=== PATIENT | male | born 1940 | race Caucasian/White ===

== ENCOUNTER 2020-03-13 20:32 | Inpatient (IN) | payer MEDICARE, BC ==
[~2020-03-13] VITALS: Ht 175.3 cm; Wt 95.1 kg
--- NOTE | 2020-03-13 20:40 | NUR ---
ED Nurse Note: Patient came from home to the ED due to possible ureteral stone obstruction. Patient stated he had some left-sided abdominal pain before coming in but now it is minimal. Patient said he went to his urologist who saw some hydronephrosis and was concerned of a large stone. Patient stated he had hx of ureteral stones passed. Patient denies fever and chills, nausea or vomiting, He denies any dysuria or hematuria, /SOB and chest pain.
[2020-03-13] MEDS ORDERED: METOPROLOL TART25 MG ORAL (20:44)
--- NOTE | 2020-03-13 20:49 | NUR ---
ED Nurse Note: Urine sent to lab
--- NOTE | 2020-03-13 20:50 | NUR ---
ED Nurse Note: Patient to CT scan
[2020-03-13 20:56] VITALS: BP 151/95
--- NOTE | 2020-03-13 21:00 | NUR ---
ED Nurse Note: Patient back from CT
--- NOTE | 2020-03-13 21:00 | NUR ---
ED Nurse Note: ERMD at bedside
[2020-03-13 21:05] LABS: APPEARANCE,URINE CLEAR; BILIRUBIN, URINE NEGATIVE (NEGATIVE); GLUCOSE, URINE (UA) NEGATIVE (NEGATIVE); KETONES,URINE NEGATIVE (NEGATIVE); LEUKOCYTE ESTERASE ,URINE 1+ (NEGATIVE); NITRITE,URINE NEGATIVE (NEGATIVE); PH,URINE 5 (4.5-8.0); PROTEIN,URINE 2+ (NEGATIVE); UROBILINOGEN,URINE NORMAL MG/DL (0.0-1.0)
[2020-03-13 21:07] LABS: COLOR,URINE YELLOW
--- NOTE | 2020-03-13 21:15 | NUR ---
ED Nurse Note: Blood and rapid covid test sent to lab
--- NOTE | 2020-03-13 21:25 | Emergency Room Report ---
History of Present Illness General Chief Complaint: Male Urogenital Problems Source: Patient Present Illness HPI Patient is a 79-year-old male past medical history of atrial fibrillation status post watchman procedure and kidney stones who was sent to the emergency room by his urologist Dr. Sullivan is concerned of an obstructing ureteral stone. Patient had some left-sided abdominal pain. He states that he went to his urologist office who saw some hydronephrosis and was concerned of a large stone. Patient states that his pain is minimal. He denies any fever or chills. He denies any abdominal pain, nausea or vomiting. He denies any dysuria or hematuria. Patient states that he has a history of 3 intrarenal stones and one ureteral stone that he believes he has passed. Allergies: Coded Allergies: No Known Allergies (Unverified , 03/13/20) COVID-19 Screening Contact w/high risk pt: No Experienced COVID-19 symptoms?: No COVID-19 Testing performed DIRECTOR DRUG: Yes - 11/25 COVID-19 Screening: Negative COVID-19 COVID-19 Testing Source: [facility] Patient History Reviewed Nursing Documentation: PMH: Agreed; PSxH: Agreed Nursing Documentation-PMH Past Medical History: No History, Except For Hx Cardiac Problems: Yes - afib Review of Systems All Other Systems: negative except mentioned in HPI Physical Exam Vital Signs Date Time Temp Pulse Resp B/P (MAP) Pulse Ox O2 Delivery O2 Flow Rate FiO2 03/13/20 20:37 97.7 62 18 151/95 (113) 94 Room Air Sp02 EP Interpretation: reviewed, normal General Appearance: no apparent distress, alert, GCS 15, non-toxic Head: normocephalic, atraumatic Eyes: bilateral eye normal inspection, bilateral eye PERRL ENT: hearing grossly normal, normal pharynx, no angioedema, normal voice Neck: full range of motion, supple/symm/no masses Respiratory: chest non-tender, speaking full sentences Cardiovascular #1: no edema, irregularly irregular Gastrointestinal: non tender, soft, no guarding, no rebound Rectal: deferred Genitourinary: no CVA tenderness Musculoskeletal: normal range of motion, no calf tenderness, no lower extremity edema Neurologic: welfare manager III-XII nml as tested, oriented x3 Psychiatric: no suicidal/homicidal ideation Skin: no rash Lymphatic: no adenopathy Procedures Critical Care Time Critical Care Time Total critical care time: Approximately 35 minutes. Due to a high probability of clinically significant, life threatening deterioration, the patient required my highest level of preparedness to intervene emergently and I personally spent this critical care time directly and personally managing the patient. This critical care time included obtaining a history; examining the patient; pulse oximetry; ordering and review of studies; arranging urgent treatment with development of a management plan; evaluation of patient's response to treatment; frequent reassessment; and, discussions with other providers.This critical care time was performed to assess and manage the high probability of imminent, life- threatening deterioration that could result in multi-organ failure. It was exclusive of separately billable procedures and treating other patients and teaching time. Please see MDM section and the rest of the note for further information on patient assessment and treatment. Medical Decision Making Diagnostic Impression: Primary Impression: Ureteral stone Additional Impressions: Hydronephrosis Acute renal failure Elevated troponin ER Course Patient found to have large 9 mm distal ureteral stone with moderate hydronephrosis. Patient does have leukocytosis. White count of 14,000. Patient given empiric antibiotics. Blood and urine cultures have been sent. Patient given 750 mg of IV Levaquin. Patient has elevated BUN and creatinine with creatinine of 2. 2 L of IV fluids have been given and 100 cc/h of IV fluids are being given as maintenance. Patient will be n.p.o. after midnight. Patient resting comfortably in bed and still declining any pain medication at this time. Patient's troponin is mildly elevated. EKG demonstrates atrial fibrillation with no ST changes. Patient has no chest pain. Will hold on blood thinners due to the fact that the patient will require surgery. Patient will be seen by Dr Jordan from cardiology in the morning. Serial troponins have been ordered. Patient will be admitted to [facility].. Laboratory Tests Test 03/13/20 21:00 03/13/20 21:15 Urine Color Yellow Urine Appearance Clear Urine pH 5 (4.5-8.0) Urine Specific [place] 1.020 (1.005-1.035) Urine Protein 2+ (NEGATIVE) H Urine Glucose (UA) Negative (NEGATIVE) Urine Ketones Negative (NEGATIVE) Urine Blood 2+ (NEGATIVE) H Urine Nitrite Negative (NEGATIVE) Urine Bilirubin Negative (NEGATIVE) Urine Urobilinogen Normal MG/DL (0.0-1.0) Urine Leukocyte Esterase 1+ (NEGATIVE) H Urine RBC 2-4 /HPF (0 - 0) H Urine WBC 0-2 /HPF (0 - 0) Urine Squamous Epithelial Cells Occasional /LPF Urine Bacteria Occasional /HPF (NONE) Urine Mucus Occasional /LPF White Blood Count 14.4 K/UL (4.8-10.8) H Red Blood Count 5.40 M/UL (4.70-6.10) Hemoglobin 17.2 G/DL (14.2-18.0) Hematocrit 50.8 % (42.0-52.0) Mean Corpuscular Volume 94 FL (80-99) Mean Corpuscular Hemoglobin 31.8 PG (27.0-31.0) H Mean Corpuscular Hemoglobin Concent 33.8 G/DL (32.0-36.0) Red Cell Distribution Width 12.9 % (11.6-14.8) Platelet Count 187 K/UL (150-450) Mean Platelet Volume 8.2 FL (6.5-10.1) Neutrophils (%) (Auto) 73.4 % (45.0-75.0) Lymphocytes (%) (Auto) 11.7 % (20.0-45.0) L Monocytes (%) (Auto) 13.2 % (1.0-10.0) H Eosinophils (%) (Auto) 0.7 % (0.0-3.0) Basophils (%) (Auto) 1.1 % (0.0-2.0) Prothrombin Time 11.4 SEC (9.30-11.50) Prothrombin Time INR 1.0 (0.9-1.1) Activated Partial Thromboplast Time 27 SEC (23-33) Sodium Level 141 MMOL/L (136-145) Potassium Level 3.9 MMOL/L (3.5-5.1) Chloride Level 104 MMOL/L (98-107) Carbon Dioxide Level 28 MMOL/L (21-32) Anion Gap 9 mmol/L (5-15) Blood Urea Nitrogen 25 mg/dL (7-18) H Creatinine 2.0 MG/DL (0.55-1.30) H Estimated Glomerular Filtration Rate 32.5 mL/min (>60) Glucose Level 101 MG/DL (74-106) Calcium Level 8.9 MG/DL (8.5-10.1) Total Bilirubin 1.7 MG/DL (0.2-1.0) H Direct Bilirubin 0.3 MG/DL (0.0-0.3) Aspartate Amino Transferase (AST) 26 U/L (15-37) Alanine Aminotransferase (ALT) 34 U/L (12-78) Alkaline Phosphatase 59 U/L (46-116) Total Creatine Kinase 142 U/L (26-308) Troponin I 0.093 ng/mL (0.000-0.056) Total Protein 7.6 G/DL (6.4-8.2) Albumin 3.8 G/DL (3.4-5.0) Globulin 3.8 g/dL Albumin/Globulin Ratio 1.0 (1.0-2.7) Microbiology Date/Time Source Procedure Growth Status 03/13/20 21:15 Nasopharynx SARS-CoV-2 RdRp Gene Assay - Final Complete Laboratory Tests Test 03/13/20 21:00 03/13/20 21:15 Urine Color Yellow Urine Appearance Clear Urine pH 5 (4.5-8.0) Urine Specific [place] 1.020 (1.005-1.035) Urine Protein 2+ (NEGATIVE) H Urine Glucose (UA) Negative (NEGATIVE) Urine Ketones Negative (NEGATIVE) Urine Blood 2+ (NEGATIVE) H Urine Nitrite Negative (NEGATIVE) Urine Bilirubin Negative (NEGATIVE) Urine Urobilinogen Normal MG/DL (0.0-1.0) Urine Leukocyte Esterase 1+ (NEGATIVE) H Urine RBC 2-4 /HPF (0 - 0) H Urine WBC 0-2 /HPF (0 - 0) Urine Squamous Epithelial Cells Occasional /LPF Urine Bacteria Occasional /HPF (NONE) Urine Mucus Occasional /LPF White Blood Count 14.4 K/UL (4.8-10.8) H Red Blood Count 5.40 M/UL (4.70-6.10) Hemoglobin 17.2 G/DL (14.2-18.0) Hematocrit 50.8 % (42.0-52.0) Mean Corpuscular Volume 94 FL (80-99) Mean Corpuscular Hemoglobin 31.8 PG (27.0-31.0) H Mean Corpuscular Hemoglobin Concent 33.8 G/DL (32.0-36.0) Red Cell Distribution Width 12.9 % (11.6-14.8) Platelet Count 187 K/UL (150-450) Mean Platelet Volume 8.2 FL (6.5-10.1) Neutrophils (%) (Auto) 73.4 % (45.0-75.0) Lymphocytes (%) (Auto) 11.7 % (20.0-45.0) L Monocytes (%) (Auto) 13.2 % (1.0-10.0) H Eosinophils (%) (Auto) 0.7 % (0.0-3.0) Basophils (%) (Auto) 1.1 % (0.0-2.0) Prothrombin Time 11.4 SEC (9.30-11.50) Prothrombin Time INR 1.0 (0.9-1.1) Activated Partial Thromboplast Time 27 SEC (23-33) Sodium Level 141 MMOL/L (136-145) Potassium Level 3.9 MMOL/L (3.5-5.1) Chloride Level 104 MMOL/L (98-107) Carbon Dioxide Level 28 MMOL/L (21-32) Anion Gap 9 mmol/L (5-15) Blood Urea Nitrogen 25 mg/dL (7-18) H Creatinine 2.0 MG/DL (0.55-1.30) H Estimated Glomerular Filtration Rate 32.5 mL/min (>60) Glucose Level 101 MG/DL (74-106) Calcium Level 8.9 MG/DL (8.5-10.1) Total Bilirubin Pending Aspartate Amino Transferase (AST) Pending Alanine Aminotransferase (ALT) Pending Alkaline Phosphatase Pending Total Creatine Kinase Pending Troponin I Pending Total Protein Pending Albumin Pending Globulin Pending EKG Diagnostic Results Troponin ordered: Yes When was troponin ordered?: Mar 13, 2020 EKG Time: 21:58 Rate: normal Rhythm: other - Atrial fibrillation ST Segments: no acute changes ASA given to the pt in ED: No - Left axis deviation Last Vital Signs Date Time Temp Pulse Resp B/P (MAP) Pulse Ox O2 Delivery O2 Flow Rate FiO2 03/13/20 20:56 97.7 78 18 151/95 94 Room Air Disposition: ADMITTED INPATIENT - [facility] Condition: Critical Physician Consult: Dr. Iyer and Dr. Sullivan Referrals: Rainer Sullivan MD (PCP) Additional Instructions: Please note that this report is being documented using DRAGON technology. This can lead to erroneous entry secondary to incorrect interpretation by the dictating instrument. Clara Holman M.D. Mar 13, 2020 21:25
--- NOTE | 2020-03-13 21:36 | Diagnostic Imaging Report ---
CLINICAL HISTORY: PAIN TECHNIQUE: Axial computed tomography images of the abdomen and pelvis without intravenous contrast. CTDI is 9.2 mGy and DLP is 490.2 mGy-cm. One or more of the following dose reduction techniques were used: automated exposure control, adjustment of the mA and/or kV according to patient size, use of iterative reconstruction technique. COMPARISON: No relevant prior studies available. FINDINGS: Evaluation of the soft tissue and vasculature is limited on this noncontrast exam. The lung bases demonstrate no consolidation or pleural effusions. 12 mm hepatic dome cyst (coronal 40). Additional subcentimeter hypoattenuating liver lesions are identified, too small to characterize. The spleen, pancreas and adrenal gland are unremarkable, within the confines of this noncontrast exam. No gallbladder wall thickening or pericholecystic free fluid. A 9 mm stone is identified within the distal right ureter (3: 117, coe images). There is more proximal moderate hydroureteronephrosis with periureteral inflammatory changes consistent with obstructive urolithiasis. Additional nonobstructive bilateral renal calculi are identified, the largest measuring 13 mm within the left kidney. No left hydronephrosis. 36 mm partially exophytic left lower pole renal cyst. The appendix is unremarkable. The bowel demonstrate normal caliber without evidence of obstruction. No mural bowel wall thickening. The prostate gland is enlarged measuring 18 mm in the transverse dimension. The urinary bladder is decompressed limiting evaluation of the lumen. Aorta is normal caliber. Atherosclerotic vascular calcifications are identified. No adenopathy or extraluminal air. No organized fluid collection or ascites. Penile pump reservoir identified within the right lower quadrant. Multilevel degenerative changes are identified within the thoracic and lumbar spine including vacuum disc phenomenon. Small fat containing periumbilical hernia. IMPRESSION: 1. Obstructing 9 mm stone within the distal right ureter, with more proximal moderate hydroureteronephrosis. Additional bilateral calculi are identified, nonobstructive. 2. Incidental note is made of an enlarged prostate gland.
[2020-03-13 21:44] LABS: ANION GAP 9 mmol/L (5-15); BASOPHILS % (AUTO) 1.1 % (0.0-2.0); BLOOD UREA NITROGEN 25 mg/dL (7-18); CALCIUM 8.9 MG/DL (8.5-10.1); CARBON DIOXIDE 28 MMOL/L (21-32); CHLORIDE 104 MMOL/L (98-107); EOSINOPHILS % (AUTO) 0.7 % (0.0-3.0); HEMATOCRIT 50.8 % (42.0-52.0); HEMOGLOBIN 17.2 G/DL (14.2-18.0); LYMPHOCYTES % (AUTO) 11.7 % (20.0-45.0); MEAN CORPUSCULAR VOLUME 94 FL (80-99); MONOCYTES % (AUTO) 13.2 % (1.0-10.0); NEUTROPHILS % (AUTO) 73.4 % (45.0-75.0); PLATELET COUNT 187 K/UL (150-450); POTASSIUM 3.9 MMOL/L (3.5-5.1); RED CELL DISTRIBUTION WIDTH 12.9 % (11.6-14.8); SODIUM 141 MMOL/L (136-145); WHITE BLOOD COUNT 14.4 K/UL (4.8-10.8)
[2020-03-13 21:55] LABS: ALANINE AMINOTRANSFERASE 34 U/L (12-78); ALBUMIN 3.8 G/DL (3.4-5.0); ALKALINE PHOSPHATASE 59 U/L (46-116); ASPARTATE AMINO TRANSFERASE 26 U/L (15-37); BILIRUBIN,TOTAL 1.7 MG/DL (0.2-1.0); CREATINE KINASE 142 U/L (26-308)
[2020-03-13 21:57] LABS: BILIRUBIN,DIRECT 0.3 MG/DL (0.0-0.3)
--- NOTE | 2020-03-13 23:10 | NUR ---
ED Nurse Note: Report given to PRINCESS ESPINOZA.
--- NOTE | 2020-03-13 23:25 | NUR ---
TRANSFER TO FLOOR: Patient transferred to SDU at rm 245 via gurney, with gambling monitor, accompanied by RN. Belongings given and checked by RN. Patient transferred safely to bed and endorsed to RN
--- NOTE | 2020-03-13 23:50 | NUR ---
NURSE NOTES: Received report from OLGA Garcias. pt is alert oriented x 4. pt is verbal and able follow commands. Able to walk with assistance with stable gait. Pt refuses to wear non skid socks. Oriented to hospital and protocols. Pt belongings signed by pt. Noted several things in bedside including black phone with field mechanical meter tester. Pt has money and wants to keep it at bedside. pt also has few medications at bag but pt refuses to give it. Explained protocol and pt aware of that. Pt has LAC g20 patent intact and connected to IV. Pt denies pain and chest pain. No signs of respiratory distress on RA o2 sat 100%. BP: 145/74. No pain at this time at abdomen. Pt able to urinate without pain. Bed in lowest position. Call light within reach. Continue to plan of care.
--- NOTE | 2020-03-13 23:55 | NUR ---
NURSE NOTES: Spoke to Dr. Iyer orders were given. Pt is on NPO post midnight, explained to pt aware and able to verbalized understanding. Pt able to follow commands and said will call if need assistance.
[2020-03-14] VITALS (12 sets, daily range): BP systolic 111–163; BP diastolic 67–101
--- NOTE | 2020-03-14 03:43 | NUR ---
NURSE NOTES: O2 sat noted 94% on RA. No signs of respiratory distress. RR: 19. Pt is sleeping comfortably.
--- NOTE | 2020-03-14 03:59 | NUR ---
NURSE NOTES: Home meds at bedside, pt refused to surrender it. Student Nurse made aware.
--- NOTE | 2020-03-14 04:51 | NUR ---
NURSE NOTES: Pt complained of pain 10/10 on lower abdomen. Spoke to ordered 1 dose of Dilaudid 2mg IV x 1. pt BP:152/64, KS: 107 o2 sat- 95% in RA. Pt is guarding and facial grimacing is noted.
--- NOTE | 2020-03-14 05:38 | NUR ---
NURSE NOTES: EKG done. Pt rhythym is AFIB with RVR, pt is asymptomatic, verbal and able to follow commands. No chest pain. HR- 111-115, BP:147/74. o2 sat- 97% RA. pt is in excuriating pain on lower abdomen. Continue to monitor pt.
--- NOTE | 2020-03-14 06:37 | NUR ---
NURSE NOTES: Pt has no pain noted. Pt is asymptomatic, No chest pain noted. Pt repositioned himself.
--- NOTE | 2020-03-14 06:53 | NUR ---
NURSE NOTES: Page Dr. Carter awaiting for response. Regarding the Atrial flutter x 1 and Afib with RVR. HR-120's. Awaiting for response.
--- NOTE | 2020-03-14 07:08 | NUR ---
NURSE HAND-OFF REPORT: Important Events on Shift: Pt has pain 10/10 on abdominal pain guarding in lower abdominal pain, Rhythym is AFIB with RVR, Trop I -0.093 Patient Status: Asymptomatic Diet: NPO post MN Pending Orders: None Pending Results/Labs: Trop I Pending MD notification: Change in Rhythym Latest Vital Signs: Temperature 97.7 , Pulse 101 , B/P 152 /90 , Respiratory Rate 20 , O2 SAT 96 , Room Air, O2 Flow Rate . Vital Sign Comment: Hr is 120's EKG Rhythm: AFIB/Atrial flutter Rhythm change?: Y Notified?: N - MD Response: No ressponse yet Latest Mata Fall Score: 20 Fall Risk: Low Risk Safety Measures: Call light Within Reach, Bed Alarm Zone 2, Side Rails Side Rails x3, Bed position Low and Locked. Fall Precautions: Yellow Socks Patient Fall Education Report given to [OLGA Kitchen].
[2020-03-14 07:16] LABS: ALBUMIN 3.5 G/DL (3.4-5.0); ALBUMIN/GLOBULIN RATIO 1.1 (1.0-2.7); BILIRUBIN,TOTAL 1.8 MG/DL (0.2-1.0); CALCIUM 8.1 MG/DL (8.5-10.1); CKMB 4.4 NG/ML (0.0-3.6); CREATININE 1.8 MG/DL (0.55-1.30); POTASSIUM 4.3 MMOL/L (3.5-5.1)
[2020-03-14 07:17] LABS: BILIRUBIN,DIRECT 0.4 MG/DL (0.0-0.3)
--- NOTE | 2020-03-14 07:40 | NUR ---
NURSE NOTES: Received report from OLGA Cortes. Patient in bed resting, no active s/s cardiac, respiratory distress noticed at this time. Patient A. fib with HR 101. Patient AOx4, follow command, ambulatory with minimal pediatric dental assistant. IV on left AC 20G, asymptomatic, patent, intact, IVF NS running @ 75ml/h. . Endorsed possible surgery by Dr. Sullivan, NPO at this time. Patient refused to check on medication or put it in the pharmacy, will educate again. Endorsed MD made aware of EKG result, no new order at this time. Bed in lowest position, side rails upx3, call light within reach, bed alarm on, Will continue to monitor.
--- NOTE | 2020-03-14 07:41 | NUR ---
NURSE NOTES: Patient AOx4, denies chest pain or abdominal pain at this time. Will continue to monitor.
--- NOTE | 2020-03-14 07:58 | Pre-Procedure Note/Attestation ---
Pre-Procedure Note/Attestation Complete Prior to Procedure Planned Procedure: right Procedure Narrative: RIRS ESWL Right Indications for Procedure Pre-Operative Diagnosis: Renal and right ureteral stone Attestation I attest that I discussed the nature of the procedure; its benefits; risks and complications; and alternatives (and the risks and benefits of such alternatives), prior to the procedure, with the patient (or the patient's legal personnel representative). I attest that, if there was a reasonable possibility of needing a blood transfusion, the patient (or the patient's legal personnel representative) was given the [facility] standardized written summary, pursuant to the Trace Lb Blood Safety Act ([place] Health and Safety Code # 1645, as amended). I attest that I re-evaluated the patient just prior to the surgery and that there has been no change in the patient's H&P, except as documented below: Rainer Sullivan MD Mar 14, 2020 07:58
--- NOTE | 2020-03-14 09:36 | NUR ---
NURSE NOTES: Per Dr. Iyer, 5mg IVP metoprolol once. Order noted, entered, carried out.
[2020-03-14] MEDS ORDERED: Metoprolol Tartrate 5mg/5ml Inj IVP SCH ×2 (10:00→10:31)
--- NOTE | 2020-03-14 10:25 | NUR ---
NURSE NOTES: Dr. Carter at the bedside, made aware metoprolol 5mg IVP given per Dr. Iyer. Per MD boggs to go surgery at this time, will speak with Dr. Sullivan regarding giving metoprolol at the OR.
[2020-03-14] MEDS ORDERED: Iothalamate Meglumine 60% 50ML INJ ONE (10:26)
[2020-03-14] MEDS ORDERED: Metoprolol Tartrate 5 MG in D5W 55 ML IVPB PRN (11:00)
[2020-03-14] MEDS ORDERED: Midazolam 2mg/2ml Inj ONE (11:05)
[2020-03-14] MEDS ORDERED: fentaNYL 100 mcg/2 mL IV ONE ×2 (11:05→12:04)
--- NOTE | 2020-03-14 11:15 | History and Physical Report ---
DATE OF ADMISSION: 03/13/2020 HISTORY OF PRESENT ILLNESS: This is a 79-year-old male with a history of chronic atrial fibrillation, status post a failed WATCHMAN procedure two years ago, was sent to the hospital with flank pain. The patient was found to have significant urolithiasis and renal obstruction with high creatinine. As part of his workup, he underwent an EKG, which showed that he was in AFib. Heart rate at that time yesterday upon arrival was 115, later on he was found to be also in the 130s range. The patient states he is always in AFib, although he does not know his rate. He takes metoprolol only, unknown dose. He is not on anticoagulation. The patient has been worked up and found to have urolithiasis and renal obstruction and is scheduled for cystoscopy and stent placement/stone extraction after cardiac clearance. He is currently asymptomatic. Denies any chest pain or shortness of breath. PAST HISTORY: Chronic AFib, status post WATCHMAN procedure, chronic beta blockade. HOME MEDICATIONS: Metoprolol only. ALLERGIES: None. SURGICAL HISTORY: Notable for WATCHMAN procedure. PHYSICAL EXAMINATION: GENERAL: Reveals a 79-year-old male. HEENT: Unremarkable. LUNGS: Clear breath sounds bilaterally. HEART: Heart rate is irregularly irregular. ABDOMEN: Soft. EXTREMITIES: There is no edema. VITAL SIGNS: Respirations are 18, heart rate is 126, blood pressure 130/70, he is afebrile. LABORATORY AND DIAGNOSTIC DATA: Lab testing shows creatinine 2, now 1.8. Bilirubin 1.7. Troponin 0.09, followed by 0.097. ProBNP 748. CBC shows white count 14,000. Coags are negative. Urinalysis shows few pus cells. SARS COVID-19 gene assay is negative. Abdomen and pelvis CT obtained yesterday shows a 9 mm stone in the distal right ureter as well as proximal moderate hydronephrosis. Additional nonobstructive bilateral renal calculi also noted. Lung basis on CT abdomen images are clear of any infiltrates or effusion. IMPRESSION: 1. Urolithiasis. 2. Troponin leak. 3. Chronic atrial fibrillation. 4. Status post WATCHMAN procedure. 5. Chronic beta blockade. DISCUSSION: The patient needs better rate control. We will initiate IV metoprolol. Once heart rate is controlled to less than 100, he will be cleared for surgery from an Internal Medicine/Pulmonary/ICU perspective. Also await cardiac evaluation and opinion. Discussed with the patient and Dr. Sullivan. I will start IV beta blockade. Keep NPO, IV fluids. The patient has received Levaquin in the ER and here as well today. Osiel Iyer M.D. DR: KIMBERLEE JOB#: [id number] CC:
[2020-03-14] MEDS ORDERED: Phenylephrine 10mg/ml Vial ONE (11:30)
[2020-03-14] MEDS ORDERED: NS Irrig 2000ml IRRIG ONE (11:30)
[2020-03-14] MEDS ORDERED: Esmolol 100mg/10ml Inj ONE (11:30)
[2020-03-14] MEDS ORDERED: LR 1000ml ONE (11:30)
--- NOTE | 2020-03-14 12:00 | Consultation ---
DATE OF CONSULTATION: 03/14/2020 CARDIOLOGY CONSULTATION CONSULTING PHYSICIAN: Varun Carter MD. REQUESTING PHYSICIAN: Rainer Sullivan MD. REASON FOR CONSULTATION: Preoperative cardiovascular assessment. HISTORY OF PRESENT ILLNESS: This is a 79-year-old male who has a history of chronic atrial fibrillation. He is status post Watchman procedure approximately two years ago. He also states that he had a stress test in the last year during his routine physical and did not have any abnormalities. The patient was sent to the emergency room last night because of abdominal pain and a known obstructive ureteral stone with associated hydronephrosis. In the emergency room, he was noted to have an elevated troponin level but no symptoms of chest pain, palpitations, or shortness of breath. PAST MEDICAL HISTORY: As noted above. ALLERGIES: None. MEDICATIONS: Include Toprol 25 daily. FAMILY HISTORY: Noncontributory. SOCIAL HISTORY: Prior smoker. No alcohol or substance abuse. REVIEW OF SYSTEMS: Otherwise unremarkable. PHYSICAL EXAMINATION: VITAL SIGNS: Blood pressure 150/95, pulse 121, respiratory rate 18, afebrile. HEENT: Conjunctivae pink. Oropharynx clear. NECK: Supple. LUNGS: Clear. CARDIAC: Irregularly irregular. Normal S1, S2. ABDOMEN: Soft. No CVA tenderness. EXTREMITIES: No edema. NEUROLOGIC: Nonfocal. LABORATORY AND DIAGNOSTIC DATA: Troponin 0.093, repeated 0.097. CK-MB index was negative. EKG atrial fibrillation, nonspecific ST change. Potassium 4.3, BUN 20, creatinine 1.8. IMPRESSION: 1. Chronic atrial fibrillation now with rapid ventricular response. 2. Elevated troponin levels likely demand leak and do not represent acute ischemia. 3. Chronic diastolic congestive heart failure, clinically compensated. 4. Obstructive uropathy. PLAN: 1. Discussed with the patient. 2. Discussed with urologist. 3. IV beta-giuliana for rate control. 4. IV morphine for pain control. 5. No anticoagulation needed in view of history of Watchman procedure. 6. Minimal increase in perioperative cardiovascular risk discussed with the patient; however, I recommend to proceed in view of acuity of symptoms. The patient to be seen postoperatively and care plan updated. Varun Carter M.D. DR: Neno JOB#: [id number] CC:
--- NOTE | 2020-03-14 12:02 | NUR ---
CASE MANAGEMENT: REVIEW 79 YEAR OLD MALE PRESENTED TO ED FROM HOME CC: LEFT SIDE ABD PAIN SI: URETERAL STONE . HYDRONEPHROSIS . ACUTE RENAL FAILURE . ELEVATED TROPONIN RIRS ESWL RIGHT 03/14 T 97.7 HR 62 RR 18 BP 151/95 SAT 94% ROOM AIR WBC 14.4 BUN 25 CR 2.0 TROP I 0.093 IS: NS IVF BOLUS X1 LEVOFLOXACIN IV X1 DILAUDID IV X1 LOPRESSOR IV X1 PATIENT ADMITTED TO STEP DOWN UNIT 03/13/2020 DCP: PATIENT IS FROM HOME
[2020-03-14] MEDS ORDERED: NS Irrig 1000ml IRRIG ONE (12:30)
[2020-03-14] MEDS ORDERED: fentaNYL 100 mcg/2 mL IV PRN (12:30)
[2020-03-14] MEDS ORDERED: Acetaminophen (Non formulary) 100 ML IV ONE (12:30)
[2020-03-14] MEDS ORDERED: DiphenhydrAMINE 50mg/ml Inj IVP PRN (12:30)
[2020-03-14] MEDS ORDERED: Hydromorphone 0.5mg/0.5ml inj IVP PRN ×2 (12:30)
[2020-03-14] MEDS ORDERED: Lidocaine 1% MPF 10mg/ml 5ml ONE (12:32)
[2020-03-14] MEDS ORDERED: Metoclopramide 10mg/2ml Inj ONE (12:32)
[2020-03-14] MEDS ORDERED: Metoprolol Tartrate 5mg/5ml Inj ONE (12:38)
--- NOTE | 2020-03-14 12:41 | Anethesia Preoperative Eval ---
Anesthesia Pre-op PMH/ROS General Date of Evaluation: Mar 14, 2020 Time of Evaluation: 11:20 Anesthesiologist: osmin ASA Score: ASA 3 Mallampati Score Class I : Soft palate, uvula, fauces, pillars visible Class II: Soft palate, uvula, fauces visible Class III: Soft palate, base of uvula visible Class IV: Only hard plate visible Mallampati Classification: Class III Surgeon: Nate Diagnosis: Kidney stone Surgical Procedure: ESWL Anesthesia History: none Family History: no anesthesia problems Allergies: Coded Allergies: No Known Allergies (Unverified , 03/13/20) Medications: see eMAR Patient NPO?: Yes NPO Date: Mar 14, 2020 NPO Time: 00:01 Past Medical History Cardiovascular: Reports: HTN, CAD, arrhythmia - afib, uncntrlled rAte; Denies: IA, valve dz, other Pulmonary: Denies: asthma, COPD, JULISA, other Gastrointestinal/Genitourinary: Denies: GERD, CRI, ESRD, other Neurologic/Psychiatric: Denies: dementia, CVA, depression/anxiety, TIA, other Endocrine: Denies: DM, hypothyroidism, steroids, other HEENT: Denies: cataract (L), cataract (R), glaucoma, SAXMAN (L), SAXMAN (R), other Hematology/Immune: Denies: anemia, DVT, bleeding disorder, other Musculoskeletal/Integumentary: Denies: OA, RA, DJD, DDD, edema, other PMH Narrative: 1. Chronic atrial fibrillation now with rapid ventricular response. 2. Elevated troponin levels likely demand leak and do not represent acute ischemia. 3. Chronic diastolic congestive heart failure, clinically compensated. 4. Obstructive uropathy. Anesthesia Pre-op Phys. Exam Physician Exam Last Vital Signs Date Time Temp Pulse Resp B/P (MAP) Pulse Ox O2 Delivery O2 Flow Rate FiO2 03/14/20 09:30 125 142/91 03/14/20 08:00 97.7 20 96 03/14/20 08:00 Room Air Constitutional: NAD Neurologic: CN 2-12 intact Cardiovascular: other - afib Respiratory: CTA Gastrointestinal: S/NT/ND Airway Exam Mallampati Classification 3 Mallampati Score: Class III MO: limited Neck: thick TMD: 2fb ROM: full Dentures: no upper, no lower Anesthesia Pre-op A/P Labs Hematology Test 03/13/20 21:15 White Blood Count 14.4 K/UL (4.8-10.8) H Red Blood Count 5.40 M/UL (4.70-6.10) Hemoglobin 17.2 G/DL (14.2-18.0) Hematocrit 50.8 % (42.0-52.0) Mean Corpuscular Volume 94 FL (80-99) Mean Corpuscular Hemoglobin 31.8 PG (27.0-31.0) H Mean Corpuscular Hemoglobin Concent 33.8 G/DL (32.0-36.0) Red Cell Distribution Width 12.9 % (11.6-14.8) Platelet Count 187 K/UL (150-450) Mean Platelet Volume 8.2 FL (6.5-10.1) Neutrophils (%) (Auto) 73.4 % (45.0-75.0) Lymphocytes (%) (Auto) 11.7 % (20.0-45.0) L Monocytes (%) (Auto) 13.2 % (1.0-10.0) H Eosinophils (%) (Auto) 0.7 % (0.0-3.0) Basophils (%) (Auto) 1.1 % (0.0-2.0) Coagulation Test 03/13/20 21:15 Prothrombin Time 11.4 SEC (9.30-11.50) Prothromb Time International Ratio 1.0 (0.9-1.1) Activated Partial Thromboplast Time 27 SEC (23-33) Chemistry Test 03/13/20 21:15 03/14/20 06:02 Sodium Level 141 MMOL/L (136-145) 140 MMOL/L (136-145) Potassium Level 3.9 MMOL/L (3.5-5.1) 4.3 MMOL/L (3.5-5.1) Chloride Level 104 MMOL/L (98-107) 106 MMOL/L (98-107) Carbon Dioxide Level 28 MMOL/L (21-32) 22 MMOL/L (21-32) Anion Gap 9 mmol/L (5-15) 12 mmol/L (5-15) Blood Urea Nitrogen 25 mg/dL (7-18) H 20 mg/dL (7-18) H Creatinine 2.0 MG/DL (0.55-1.30) H 1.8 MG/DL (0.55-1.30) H Estimat Glomerular Filtration Rate 32.5 mL/min (>60) 36.7 mL/min (>60) Glucose Level 101 MG/DL (74-106) 132 MG/DL (74-106) H Calcium Level 8.9 MG/DL (8.5-10.1) 8.1 MG/DL (8.5-10.1) L Total Bilirubin 1.7 MG/DL (0.2-1.0) H 1.8 MG/DL (0.2-1.0) H Direct Bilirubin 0.3 MG/DL (0.0-0.3) 0.4 MG/DL (0.0-0.3) H Aspartate Amino Transf (AST/SGOT) 26 U/L (15-37) 23 U/L (15-37) Alanine Aminotransferase (ALT/SGPT) 34 U/L (12-78) 31 U/L (12-78) Alkaline Phosphatase 59 U/L (46-116) 57 U/L (46-116) Total Creatine Kinase 142 U/L (26-308) 102 U/L (26-308) Troponin I 0.093 ng/mL (0.000-0.056) 0.097 ng/mL (0.000-0.056) Total Protein 7.6 G/DL (6.4-8.2) 6.7 G/DL (6.4-8.2) Albumin 3.8 G/DL (3.4-5.0) 3.5 G/DL (3.4-5.0) Globulin 3.8 g/dL 3.2 g/dL Albumin/Globulin Ratio 1.0 (1.0-2.7) 1.1 (1.0-2.7) Creatine Kinase MB 4.4 NG/ML (0.0-3.6) H Creatine Kinase MB Relative Index 4.3 Pro-B-Type Natriuretic Peptide 748 pg/mL (0-125) H Thyroid Stimulating Hormone (TSH) 2.079 uiU/mL (0.358-3.740) Studies Pre-op Studies: EKG - afib hr 110/115 Risk Assessment & Plan Assessment: Covid Neg;' Plan: General Status Change Before Surgery: No Pre-Antibiotics Drug: ancef Given Within 1 Hr of Incision: Yes Time Given: 11:30 Elle Bryson CRNA Mar 14, 2020 12:41
--- NOTE | 2020-03-14 12:46 | Diagnostic Imaging Report ---
Indication: Bilateral lower extremity edema Technique: Grayscale and duplex images of the bilateral lower extremity veins Comparison: None Findings: Bilaterally, grayscale and duplex images demonstrate no evidence of intraluminal thrombus. Normal phasic Doppler waveforms, demonstrating normal augmentation response and no evidence of valvular insufficiency. Greater saphenous vein(s) and tibial veins are patent. Normal compressibility. Impression: Negative for evidence of lower extremity deep venous thrombosis bilaterally
--- NOTE | 2020-03-14 13:04 | Brief Operative Note ---
Immediate Post Operative Note Operative Note Pre-op Diagnosis: Renal and right ureteral stone Procedure: Right RIRS ESWL Stone removal right stent placement Post-op Diagnosis: ureteral and renal stones Post-op Diagnosis: same as pre-op Surgeon: Jose Antonio Sullivan Anesthesia: general Specimen: yes Complications: none Condition: stable Fluids: 1000 Estimated Blood Loss: minimal Implant(s) used?: No Rainer Sullivan MD Mar 14, 2020 13:04
[2020-03-14] MEDS ORDERED: HYDROcodone/Acetamin 5/325 tab ORAL PRN (13:15)
--- NOTE | 2020-03-14 13:29 | Immediate Post-Op Evaluation ---
Immediate Post-Op Evalulation Immediate Post-Op Evalulation Procedure: ESWL Date of Evaluation: Mar 14, 2020 Time of Evaluation: 13:28 IV Fluids: 2000 Blood Pressure Systolic: 114 Blood Pressure Diastolic: 67 Pulse Rate: 98 Respiratory Rate: 14 O2 Sat by Pulse Oximetry: 99 Temperature (Fahrenheit): 99.5 Nausea: No Vomiting: No Complications none Patient Status: awake, reacts, patent Hydration Status: adequate Drug: ancef Given Within 1 Hr of Incision: Yes Time Given: 11:30 Elle Bryson CRNA Mar 14, 2020 13:29
[2020-03-14 13:33] LABS: BASOPHILS % (AUTO) 0.7 % (0.0-2.0); EOSINOPHILS % (AUTO) 0.3 % (0.0-3.0); HEMATOCRIT 48.8 % (42.0-52.0); HEMOGLOBIN 16.9 G/DL (14.2-18.0); LYMPHOCYTES % (AUTO) 7.3 % (20.0-45.0); MEAN CORPUSCULAR VOLUME 91 FL (80-99); NEUTROPHILS % (AUTO) 79.7 % (45.0-75.0); PLATELET COUNT 186 K/UL (150-450); RED BLOOD COUNT 5.38 M/UL (4.70-6.10); RED CELL DISTRIBUTION WIDTH 12.2 % (11.6-14.8); WHITE BLOOD COUNT 15.9 K/UL (4.8-10.8)
--- NOTE | 2020-03-14 14:52 | NUR ---
NURSE NOTES: Patient returned to the unit, environmental monitoring technician on. Patient restlessness, Junior Catheter draining well to gravity at this time. Patient easily awakable , drowsy. IV on left AC 20G, asymptomatic, patent, intact. Received report from OLGA Roa, post-op. Junior Catheter draining serosanguineous urine, scan amount of blood noted on the tip of penis. SCD on. Bed in lowest position, side rails upx3, call light within reach, bed alarm on, Will continue to monitor.
--- NOTE | 2020-03-14 14:55 | NUR ---
NURSE NOTES: BP 157/107 HR 89 O2 97% on 2L oxygen comfort measure.
--- NOTE | 2020-03-14 15:35 | NUR ---
NURSE NOTES: Dr. Sullivan made aware patient restlessness, trying to pull out Junior Catheter. Ordered non-violent wrist restraints. Order noted, entered, carried out.
--- NOTE | 2020-03-14 15:38 | Cardiology Report ---
APPROVED REPORT EKG Measurement Heart [id number] <Conclusion> Atrial fibrillation with rapid ventricular response Left axis deviation Abnormal ECG
[2020-03-14] MEDS ORDERED: [UNRECOGNIZED DRUG - MIXTURE] RECTAL SCH (16:00)
[2020-03-14] MEDS: D5 1/2NS w/KCl 20mEq 1,000 ML IV SCH (16:57)
[2020-03-14] MEDS: Docusate 100mg cap ORAL SCH (17:20)
[2020-03-14] MEDS: HYDROmorphone 1mg/ml Carpuject IVP PRN (17:20)
[2020-03-14] MEDS: Acetaminophen 650 MG SUPP RECTAL PRN ×2 (17:39→22:30)
[2020-03-14] MEDS ORDERED: Metoprolol Tartrate 10 MG in D5W 55 ML IVPB ONE (19:30)
--- NOTE | 2020-03-14 19:52 | NUR ---
NURSE HAND-OFF REPORT: Important Events on Shift: Uretal procedure by Dr. Sullivan Patient Status: stable , draining red/clear urine via Junior, post-procedure, MD aware Diet: regular Pending Orders: na Pending Results/Labs:na Pending MD notification:na Latest Vital Signs: Temperature 98.3 , Pulse 91 , B/P 146 /97 , Respiratory Rate 18 , O2 SAT 95 , Room Air, O2 Flow Rate 3 . Vital Sign Comment: na EKG Rhythm: Atrial Fibrillation Rhythm change?: N MD Notified?: N - MD Response: Latest Mata Fall Score: 20 Fall Risk: Low Risk Safety Measures: Call light Within Reach, Bed Alarm Zone 2, Side Rails Side Rails x2, Bed position Low and Locked. Fall Precautions: Patient Fall Education Report given to OLGA Cortes.
--- NOTE | 2020-03-14 19:55 | NUR ---
NURSE NOTES: Received pt from OLGA Kitchen. Pt is sitting in the chair, comfortably watching tv. He is alert, oriented, and not in distress, smiling with no facial grimacing. IV is in the left AC 20G intact and patent. Urinary catheter is patent and draining reddish to pinkish urine with no clot. Pt is able to move bilateral lower extremities. Bed is in lowest position, call light is within reach. Will continue to monitor pt. Will continue with the plan of care.
[2020-03-14] MEDS: Tamsulosin 0.4mg cap ORAL SCH (20:32)
--- NOTE | 2020-03-14 20:34 | Diagnostic Imaging Report ---
Indication: Chest pain Technique: One view of the chest Comparison: none Findings: Lungs and pleural spaces are clear. Heart size is normal. Impression: No acute process
--- NOTE | 2020-03-14 21:20 | NUR ---
NURSE NOTES: Contacted Dr. Carter regarding the Vytorin order that pt usually take at home at bedtime, but Dr. Carter said we don't carry that medication in the pharmacy. Explained to pt. to include it as home medication upon discharge. Will endorse to the morning RN. Pt verbalized understanding. Some medications at bedside refused to give it to us. Store Receiver aware. Pt refuses to wear nonskid yellow socks.
[2020-03-15] VITALS: BP 118/81
--- NOTE | 2020-03-15 01:00 | NUR ---
NURSE NOTES: Pt is lying in bed, watching tv, not in distress, denies pain. IV in R wrist is intact and patent. Junior catheter patent and draining pinkish to redish urine. Will continue to monitor the pt. Will continue with plan of care.
[2020-03-15] MEDS: D5 1/2NS w/KCl 20mEq 1,000 ML IV SCH (02:11)
[2020-03-15 04:00] VITALS: BP 127/80
[2020-03-15] MEDS: HYDROmorphone 1mg/ml Carpuject IVP PRN ×2 (04:36→15:01)
--- NOTE | 2020-03-15 05:00 | NUR ---
NURSE NOTES: Pt offered twice to change the gown, but refused.
[2020-03-15 05:01] LABS: BASOPHILS % (AUTO) 2.1 % (0.0-2.0); EOSINOPHILS % (AUTO) 0.3 % (0.0-3.0); HEMATOCRIT 41.6 % (42.0-52.0); HEMOGLOBIN 14.4 G/DL (14.2-18.0); MEAN CORPUSCULAR VOLUME 91 FL (80-99); MONOCYTES % (AUTO) 14.4 % (1.0-10.0); NEUTROPHILS % (AUTO) 76.1 % (45.0-75.0); PLATELET COUNT 161 K/UL (150-450); RED BLOOD COUNT 4.57 M/UL (4.70-6.10); RED CELL DISTRIBUTION WIDTH 12.5 % (11.6-14.8); WHITE BLOOD COUNT 16.3 K/UL (4.8-10.8)
[2020-03-15 05:24] LABS: CALCIUM 7.7 MG/DL (8.5-10.1); CREATININE 1.8 MG/DL (0.55-1.30); POTASSIUM 4.1 MMOL/L (3.5-5.1)
--- NOTE | 2020-03-15 06:59 | NUR ---
NURSE NOTES: Pt refused to send his Vytorin to pharmacy, and pt refused to do non formulary meds for Vytorin so we can order it.
--- NOTE | 2020-03-15 07:30 | NUR ---
NURSE HAND-OFF REPORT: Important Events on Shift: Pt is in moderate pain, WBC is 16.3, Pt is in AFib with RVR, Metoprolol IV given. Patient Status: Full code Diet: Regular Pending Orders: None Pending Results/Labs:None Pending MD notification:None Latest Vital Signs: Temperature 98.5 , Pulse 101 , B/P 127 /80 , Respiratory Rate 24 , O2 SAT 95 , Room Air, O2 Flow Rate 3 . Vital Sign Comment: Rapid AFIB EKG Rhythm: Atrial Fibrillation Rhythm change?: N MD Notified?: N - MD Response: N Latest Mata Fall Score: 20 Fall Risk: Low Risk Safety Measures: Call light Within Reach, Bed Alarm Zone 2, Side Rails Side Rails x2, Bed position Low and Locked. Fall Precautions: Patient Fall Education Report given to OLGA Landeros.
--- NOTE | 2020-03-15 07:30 | NUR ---
NURSE NOTES: Received report OLGA Koehler,patient eating breakfast ,poor appetite,encouraged to eat and drink,will try,with whitehead catheter,conversant,call light at reach,verbalize pain /spasm better,notified we are here to take care of him
[2020-03-15 08:00] VITALS: BP 132/98
[2020-03-15] MEDS: [UNRECOGNIZED DRUG - MIXTURE] RECTAL SCH ×3 (09:00→21:41)
[2020-03-15] MEDS: Docusate 100mg cap ORAL SCH ×2 (09:24→17:44)
[2020-03-15] MEDS ORDERED: Milk of Magnesia 30ml Ud ORAL PRN (10:00)
--- NOTE | 2020-03-15 10:30 | NUR ---
NURSE NOTES: verbalize no need pain this time ambulate with PT
--- NOTE | 2020-03-15 10:43 | 48 Hour Post Anesthesia Eval ---
Post Anesthesia Evaluation Procedure: ESWL Date of Evaluation: Mar 15, 2020 Time of Evaluation: 10:42 Blood Pressure Systolic: 148 0: 72 Pulse Rate: 86 Respiratory Rate: 18 Temperature (Fahrenheit): 97.7 O2 Sat by Pulse Oximetry: 98 Airway: patent Nausea: No Vomiting: No Pain Intensity: 2 Hydration Status: adequate Cardiopulmonary Status: stable Mental Status/LOC: patient returned to baseline Follow-up Care/Observations: n/a Post-Anesthesia Complications: none Follow-up care needed: N/A Prosper Harris MD Mar 15, 2020 10:43
--- NOTE | 2020-03-15 10:44 | Pulmonology Progress Note ---
Subjective Interval Events: POd #1; heart rate 109 Constitutional: Reports: no symptoms HEENT: Repors: no symptoms Respiratory: Reports: no symptoms Cardiovascular: Reports: no symptoms Gastrointestinal/Abdominal: Reports: nausea Genitourinary: Reports: no symptoms Allergies: Coded Allergies: No Known Allergies (Unverified , 03/13/20) Objective Last 24 Hour Vital Signs Date Time Temp Pulse Resp B/P (MAP) Pulse Ox O2 Delivery O2 Flow Rate FiO2 03/15/20 09:25 109 132/98 03/15/20 09:00 Room Air 03/15/20 08:00 97.9 109 20 132/98 (109) 100 03/15/20 04:00 98.5 101 24 127/80 (96) 95 03/15/20 04:00 101 03/15/20 04:00 Room Air 03/15/20 00:00 97.8 103 24 118/81 (93) 97 03/15/20 00:00 Room Air 03/14/20 23:31 96 03/14/20 20:32 94 126/89 03/14/20 20:00 97.7 125 22 163/91 (115) 96 03/14/20 20:00 127 03/14/20 20:00 Room Air 03/14/20 18:09 98.3 03/14/20 17:50 98.3 03/14/20 17:20 91 146/97 03/14/20 16:00 95 03/14/20 16:00 Room Air 03/14/20 16:00 97.7 90 18 163/99 (120) 95 03/14/20 14:52 Room Air 03/14/20 14:25 98.3 91 11 146/97 96 Nasal Cannula 3 03/14/20 14:10 98 11 131/90 98 Nasal Cannula 3 03/14/20 14:06 98.3 03/14/20 14:06 98.3 03/14/20 13:55 96 11 142/87 97 Nasal Cannula 3 03/14/20 13:40 100 15 158/87 97 Simple Mask 6 03/14/20 13:30 110 18 152/101 99 Simple Mask 6 03/14/20 13:29 98 14 99 03/14/20 13:20 94 20 130/75 98 Simple Mask 6 03/14/20 13:15 94 10 114/67 98 Simple Mask 6 03/14/20 13:11 97.7 100 11 111/79 98 Simple Mask 6 03/14/20 12:00 Room Air Intake and Output 03/14/20 03/15/20 18:59 06:59 Intake Total 2600 ml 1100 ml Output Total 475 ml 1500 ml Balance 2125 ml -400 ml Intake Oral 100 ml 200 ml IV Total 2500 ml 900 ml Output Urine Total 450 ml 1500 ml Estimated Blood Loss 25 ml General Appearance: no acute distress HEENT: normocephalic Respiratory: chest wall non-tender, lungs clear Cardiovascular: normal peripheral pulses, normal rate Abdomen: normal bowel sounds Extremities: no cyanosis Microbiology Date/Time Source Procedure Growth Status 03/13/20 22:00 Blood Blood Culture - Preliminary NO GROWTH AFTER 24 HOURS Resulted 03/13/20 21:15 Nasopharynx SARS-CoV-2 RdRp Gene Assay - Final Complete 03/13/20 21:00 Straight Cath Urine Culture - Preliminary NO GROWTH Resulted 03/13/20 19:45 Blood Blood Culture - Preliminary NO GROWTH AFTER 24 HOURS Resulted Laboratory Tests 03/15/20 04:15: White Blood Count 16.3H, Red Blood Count 4.57L, Hemoglobin 14.4, Hematocrit 41.6L, Mean Corpuscular Volume 91, Mean Corpuscular Hemoglobin 31.5H, Mean Corpuscular Hemoglobin Concent 34.6, Red Cell Distribution Width 12.5, Platelet Count 161, Mean Platelet Volume 6.4L, Neutrophils (%) (Auto) 76.1H, Lymphocytes (%) (Auto) 7.0L, Monocytes (%) (Auto) 14.4H, Eosinophils (%) (Auto) 0.3, Basophils (%) (Auto) 2.1H, Sodium Level 138, Potassium Level 4.1, Chloride Level 105, Carbon Dioxide Level 25, Anion Gap 9, Blood Urea Nitrogen 24H, Creatinine 1.8H, Estimat Glomerular Filtration Rate 36.7, Glucose Level 111H, Calcium Level 7.7L, Troponin I 0.060H Current Medications Medications (Trade) Dose Ordered Sig/Evelyn Route PRN Reason Start Time Stop Time Status Last Admin Dose Admin Acetaminophen (Tylenol) 650 mg Q6H PRN ORAL Mild Pain (Pain Scale 1-3) 03/14/20 13:15 04/13/20 13:14 Acetaminophen/ Hydrocodone Bitart ([place] 5/325) 1 tab Q4H PRN ORAL Moderate Pain (Pain Scale 4-6) 03/14/20 13:15 03/21/20 13:14 Belladonna Alkaloids/Opium (B & O 16-A) 60 mg Q6H RECTAL 03/15/20 09:00 03/17/20 08:59 03/15/20 09:00 Bisacodyl (Dulcolax) 10 mg Q6H PRN RECTAL Constipation 03/15/20 10:00 06/13/20 09:59 Docusate Sodium (Colace) 100 mg TWICE A DAY ORAL 03/14/20 18:00 04/13/20 17:59 03/15/20 09:24 Famotidine (Pepcid) 40 mg DAILY ORAL 03/15/20 09:00 06/13/20 08:59 03/15/20 09:24 Finasteride (Proscar) 5 mg DAILY ORAL 03/14/20 15:30 06/12/20 15:29 03/15/20 09:24 Hydromorphone HCl (Dilaudid) 0.5 mg Q4H PRN IVP For Pain 03/14/20 00:00 03/21/20 00:00 03/14/20 03:24 Hydromorphone HCl (Dilaudid) 1 mg Q3H PRN IVP pain score 4-6 03/14/20 13:15 03/21/20 13:14 03/15/20 04:36 Levofloxacin 150 ml @ 100 mls/hr Q48H IVPB 03/15/20 22:00 03/22/20 21:59 Magnesium Hydroxide (Mom) 30 ml Q6H PRN ORAL Constipation 03/15/20 10:00 04/14/20 09:59 Metoprolol Tartrate (Lopressor) 25 mg BID ORAL 03/14/20 18:00 06/12/20 17:59 03/15/20 09:25 Ondansetron HCl (Zofran) 4 mg Q6H PRN IVP Nausea & Vomiting 03/14/20 13:15 04/13/20 13:14 Tamsulosin HCl (Flomax) 0.8 mg BEDTIME ORAL 03/14/20 21:00 04/13/20 20:59 03/14/20 20:32 Temazepam (RestoriL) 7.5 mg DAILYPRN PRN ORAL Insomnia 03/14/20 13:15 03/21/20 13:14 Assessment/Plan Assessment/Plan IMPRESSION: 1. Urolithiasis. 2. Troponin leak. 3. Chronic atrial fibrillation. 4. Status post WATCHMAN procedure. 5. Chronic beta blockade. 6. POD #1; s/p cystoscopy, stent and stone removal DISCUSSION: Continue IV fluids. IV levaquin rate control Cardiology following Osiel Iyer M.D. Osiel Iyer MD Mar 15, 2020 10:44
--- NOTE | 2020-03-15 11:30 | NUR ---
PT EVALUATION NOTE Patient seen for initial evaluation and treatment initiated. Patient presents with generalized weakness and impaired functional mobility s/p cystoscopy, stent and stone removal. Patient able to transfer with SBA and able to ambulate 160 ft with SBA/CGA. Patient c/o min SOB after ambulation, denied dizziness. Patient will benefit from skilled inpatient PT intervention to improve postural stability and activity tolerance for improved level of functional mobility. Anticipate discharge home once medically cleared by MD. No DME needs identified at this time. Addendum: 03/15/20 at 1314 by RICHIE VIVAR PT Amended: Links added.
[2020-03-15 12:00] VITALS: BP 144/63
--- NOTE | 2020-03-15 15:00 | NUR ---
NURSE NOTES: Whitehead catheter switch to leg bag per Dr. Munguia,keeping the way it is,with whitehead harris,stained with blood,unable to change this time,penile main from switching to leg bag Pain reassessed feeling better,with smile watching news Addendum: 03/15/20 at 1648 by Leti Cartwright RN penile pain while switching to leg bag offered MOM or dulcolax fo no BM,patient refuse verbalize he is not eating enough no appetite
--- NOTE | 2020-03-15 15:34 | Consultation ---
History of Present Illness General Date patient seen: Mar 15, 2020 Reason for Hospitalization: Male Urogenital Problems Present Illness HPI This is a very pleasant 79-year-old male who is status post Right RIRS ESWL Stone removal right stent placement that on laboratory data identified to have elevated bilirubin with T bili of 1.8 postoperatively. Surgery was called to evaluate assist with care. Patient seen, patient [place], chart reviewed. Patient denies any nausea vomiting fever chills. He just states anticipated surgical pain nothing out of the ordinary. Tolerating diet using incentive spirometry ambulatory. Allergies: Coded Allergies: No Known Allergies (Unverified , 03/13/20) COVID-19 Screening Contact w/high risk pt: No Experienced COVID-19 symptoms?: No Medication History Scheduled Metoprolol Tartrate* (Metoprolol Tartrate*), 10 MG ORAL EVERY 12 HOURS, (Reported) Patient History History Provided By: Patient, Medical Record, PMD Healthcare decision maker Resuscitation status Advanced Directive on File Past Medical/Surgical History Past Medical/Surgical History: (1) Abnormal LFTs (2) Hydronephrosis (3) Elevated troponin (4) Ureteral stone (5) Acute renal failure Review of Systems Review of Symptoms General ROS: no weight loss or fever Psychological ROS: no depression or mood changes, no memory loss Ophthalmic ROS: no visual changes or eye irritation ENT ROS: no nasal congestion, hearing loss, dizziness Allergy and Immunology ROS: no allergic symptoms or urticaria Hematological and Lymphatic ROS: no swollen glands, unusual bleeding or bruising Endocrine ROS: no polyuria, polydipsia, weight changes, temperature intolerance Respiratory ROS: no cough, shortness of breath, or wheezing Cardiovascular ROS: no chest pain or dyspnea on exertion Gastrointestinal ROS: denies abdominal pain, bright red blood in stool. Musculoskeletal ROS: no myalgias or arthralgias Neurological ROS: no TIA or stroke symptoms Dermatological ROS: no new or changing skin lesions, rashes or pruritis Physical Exam Physical Exam General appearance: alert, cooperative, no distress, appears stated age Head: Normocephalic, without obvious abnormality, atraumatic Eyes: conjunctivae/corneas clear. PERRL, EOM's intact. Fundi benign Throat: Lips, mucosa, and tongue normal. Teeth and gums normal Neck: supple, symmetrical, trachea midline, no adenopathy, thyroid: not enlarged, symmetric, no tenderness/mass/nodules, no carotid bruit and no JVD Lungs: clear to auscultation bilaterally Heart: regular rate and rhythm, S1, S2 normal, no murmur, click, rub or gallop Abdomen: soft, non-tender. Bowel sounds normal. No masses, no organomegaly Extremities: extremities normal, atraumatic, no cyanosis or edema Pulses: 2+ and symmetric Skin: Skin color, texture, turgor normal. No rashes or lesions Neurologic: Grossly normal Last 24 Hour Vital Signs Date Time Temp Pulse Resp B/P (MAP) Pulse Ox O2 Delivery O2 Flow Rate FiO2 03/15/20 10:43 86 18 98 03/15/20 09:25 109 132/98 03/15/20 09:00 Room Air 03/15/20 08:00 97.9 109 20 132/98 (109) 100 03/15/20 04:00 98.5 101 24 127/80 (96) 95 03/15/20 04:00 101 03/15/20 04:00 Room Air 03/15/20 00:00 97.8 103 24 118/81 (93) 97 03/15/20 00:00 Room Air 03/14/20 23:31 96 03/14/20 20:32 94 126/89 03/14/20 20:00 97.7 125 22 163/91 (115) 96 03/14/20 20:00 127 03/14/20 20:00 Room Air 03/14/20 18:09 98.3 03/14/20 17:50 98.3 03/14/20 17:20 91 146/97 03/14/20 16:00 95 03/14/20 16:00 Room Air 03/14/20 16:00 97.7 90 18 163/99 (120) 95 Intake and Output 03/14/20 03/15/20 19:00 07:00 Intake Total 2700 ml 1000 ml Output Total 475 ml 1500 ml Balance 2225 ml -500 ml Intake Oral 100 ml 200 ml IV Total 2600 ml 800 ml Output Urine Total 450 ml 1500 ml Estimated Blood Loss 25 ml Laboratory Tests Test 03/15/20 04:15 White Blood Count 16.3 K/UL (4.8-10.8) H Red Blood Count 4.57 M/UL (4.70-6.10) L Hemoglobin 14.4 G/DL (14.2-18.0) Hematocrit 41.6 % (42.0-52.0) L Mean Corpuscular Volume 91 FL (80-99) Mean Corpuscular Hemoglobin 31.5 PG (27.0-31.0) H Mean Corpuscular Hemoglobin Concent 34.6 G/DL (32.0-36.0) Red Cell Distribution Width 12.5 % (11.6-14.8) Platelet Count 161 K/UL (150-450) Mean Platelet Volume 6.4 FL (6.5-10.1) L Neutrophils (%) (Auto) 76.1 % (45.0-75.0) H Lymphocytes (%) (Auto) 7.0 % (20.0-45.0) L Monocytes (%) (Auto) 14.4 % (1.0-10.0) H Eosinophils (%) (Auto) 0.3 % (0.0-3.0) Basophils (%) (Auto) 2.1 % (0.0-2.0) H Sodium Level 138 MMOL/L (136-145) Potassium Level 4.1 MMOL/L (3.5-5.1) Chloride Level 105 MMOL/L (98-107) Carbon Dioxide Level 25 MMOL/L (21-32) Anion Gap 9 mmol/L (5-15) Blood Urea Nitrogen 24 mg/dL (7-18) H Creatinine 1.8 MG/DL (0.55-1.30) H Estimat Glomerular Filtration Rate 36.7 mL/min (>60) Glucose Level 111 MG/DL (74-106) H Calcium Level 7.7 MG/DL (8.5-10.1) L Troponin I 0.060 ng/mL (0.000-0.056) Height (Feet): 5 Height (Inches): 9.00 Weight (Pounds): 199 Medications Current Medications Medications (Trade) Dose Ordered Sig/Evelyn Route PRN Reason Start Time Stop Time Status Last Admin Dose Admin Acetaminophen (Tylenol) 650 mg Q6H PRN ORAL Mild Pain (Pain Scale 1-3) 03/14/20 13:15 04/13/20 13:14 Acetaminophen/ Hydrocodone Bitart ([place] 5/325) 1 tab Q4H PRN ORAL Moderate Pain (Pain Scale 4-6) 03/14/20 13:15 03/21/20 13:14 Artificial Tears (Akwa-Tears) 2 drop Q2H PRN BOTH EYES Dry Eyes 03/15/20 13:30 04/14/20 13:29 03/15/20 14:37 Belladonna Alkaloids/Opium (B & O 16-A) 60 mg Q6H RECTAL 03/15/20 09:00 03/17/20 08:59 03/15/20 14:46 Bisacodyl (Dulcolax) 10 mg Q6H PRN RECTAL Constipation 03/15/20 10:00 06/13/20 09:59 Docusate Sodium (Colace) 100 mg TWICE A DAY ORAL 03/14/20 18:00 04/13/20 17:59 03/15/20 09:24 Famotidine (Pepcid) 40 mg DAILY ORAL 03/15/20 09:00 06/13/20 08:59 03/15/20 09:24 Finasteride (Proscar) 5 mg DAILY ORAL 03/14/20 15:30 06/12/20 15:29 03/15/20 09:24 Hydromorphone HCl (Dilaudid) 0.5 mg Q4H PRN IVP For Pain 03/14/20 00:00 03/21/20 00:00 03/14/20 03:24 Hydromorphone HCl (Dilaudid) 1 mg Q3H PRN IVP pain score 4-6 03/14/20 13:15 03/21/20 13:14 03/15/20 15:01 Levofloxacin 150 ml @ 100 mls/hr Q48H IVPB 03/15/20 22:00 03/22/20 21:59 Magnesium Hydroxide (Mom) 30 ml Q6H PRN ORAL Constipation 03/15/20 10:00 04/14/20 09:59 Metoprolol Tartrate (Lopressor) 25 mg BID ORAL 03/14/20 18:00 06/12/20 17:59 03/15/20 09:25 Ondansetron HCl (Zofran) 4 mg Q6H PRN IVP Nausea & Vomiting 03/14/20 13:15 04/13/20 13:14 Tamsulosin HCl (Flomax) 0.8 mg BEDTIME ORAL 03/14/20 21:00 04/13/20 20:59 03/14/20 20:32 Temazepam (RestoriL) 7.5 mg DAILYPRN PRN ORAL Insomnia 03/14/20 13:15 03/21/20 13:14 Assessment/Plan Problem List: (1) Hydronephrosis ICD Codes: N13.30 - Unspecified hydronephrosis SNOMED: 01219885 (2) Elevated troponin ICD Codes: R77.8 - Other specified abnormalities of plasma proteins SNOMED: 581184418, 991900743, 860770087 (3) Ureteral stone ICD Codes: N20.1 - Calculus of ureter SNOMED: 12936056 (4) Acute renal failure ICD Codes: N17.9 - Acute kidney failure, unspecified SNOMED: 35541900 (5) Abnormal LFTs Assessment & Plan: 79M s/p Right RIRS ESWL Stone removal right stent placement post op noted on CMP to have t bili of 1.8 no pain no n/v/f/c comfortable tolerating diet using incentive spirometry d bili noted and not elevated. <50% difference unlikely biliary tree and likely blood labs ordered exam benign no acute surgical intervention planned okay for diet ambulate as tolerated will follow with recs thank you Evaluation of the soft tissue and vasculature is limited on this noncontrast exam. The lung bases demonstrate no consolidation or pleural effusions. 12 mm hepatic dome cyst (coronal 40). Additional subcentimeter hypoattenuating liver lesions are identified, too small to characterize. The spleen, pancreas and adrenal gland are unremarkable, within the confines of this noncontrast exam. No gallbladder wall thickening or pericholecystic free fluid. A 9 mm stone is identified within the distal right ureter (3: 117, coe images). There is more proximal moderate hydroureteronephrosis with periureteral inflammatory changes consistent with obstructive urolithiasis. Additional nonobstructive bilateral renal calculi are identified, the largest measuring 13 mm within the left kidney. No left hydronephrosis. 36 mm partially exophytic left lower pole renal cyst. The appendix is unremarkable. The bowel demonstrate normal caliber without evidence of obstruction. No mural bowel wall thickening. The prostate gland is enlarged measuring 18 mm in the transverse dimension. The urinary bladder is decompressed limiting evaluation of the lumen. Aorta is normal caliber. Atherosclerotic vascular calcifications are identified. No adenopathy or extraluminal air. No organized fluid collection or ascites. Penile pump reservoir identified within the right lower quadrant. Multilevel degenerative changes are identified within the thoracic and lumbar spine including vacuum disc phenomenon. Small fat containing periumbilical hernia. IMPRESSION: 1. Obstructing 9 mm stone within the distal right ureter, with more proximal moderate hydroureteronephrosis. Additional bilateral calculi are identified, nonobstructive. 2. Incidental note is made of an enlarged prostate gland. ICD Codes: R94.5 - Abnormal results of liver function studies SNOMED: 016694070 Dilip Alejandra Mar 15, 2020 15:34
--- NOTE | 2020-03-15 16:00 | NUR ---
NURSE NOTES: Patient notified to be transferred to tele 209 private room,patient ambulate to 209 and checked room with Sarahy NA agreed to transfer 1620 transferred to 209-2 per bed,conversant,like the room,Dr. Munguia has been updated about his care,belongings sent with patient
[2020-03-15 16:30] VITALS: BP 130/71
--- NOTE | 2020-03-15 17:07 | NUR ---
NURSE HAND-OFF REPORT: Important Events on Shift:Has been having bladder spasm,medications given with help Patient Status: stable Diet: regular Pending Orders: No Pending Results/Labs:No Pending MD notification:place on leg bag for better mobility,patient not ready for teaching at this time,verbalize he will deal with it upon discharge-urinary bag to leg bag,,seen by PT,visited by Dr Munguia,Dr. Iyer,Dr. Carter Latest Vital Signs: Temperature 98.6 , Pulse 113 , B/P 130 /71 , Respiratory Rate 20 , O2 SAT 100 , Room Air, O2 Flow Rate 3 . Vital Sign Comment: EKG Rhythm: Atrial Fibrillation HR elevated when in pain and movement,uncomfortable-Dr. Carter aware,lopressor to 50 mg BID Rhythm change?: N MD Notified?:Varun Arenas upon rounds MD Response:medication ordered Improving Latest Mata Fall Score: 20 Fall Risk: Low Risk Safety Measures: Call light Within Reach, Bed Alarm Zone 2, Side Rails Side Rails x2, Bed position Low and Locked. Fall Precautions: Patient Fall Education Report given to .
[2020-03-15] MEDS: Metoprolol Tartrate 50mg tab ORAL SCH (17:42)
--- NOTE | 2020-03-15 18:47 | NUR ---
NURSE NOTES: Reported a-fib with rapid RVR at [address] Carter. Addendum: 03/15/20 at 1916 by Ella Kimble RN No new orders.
--- NOTE | 2020-03-15 19:17 | NUR ---
NURSE HAND-OFF REPORT: Important Events on Shift: Pt as transferred from SDU to Tele. Pt had an episode of A-fib with RVR, Dr Carter made aware, no new orders. Pt will have one family member to stay. Patient Status: stable Diet: regular Pending Orders: Pending Results/Labs: Pending MD notification: Latest Vital Signs: Temperature 98.6 , Pulse 113 , B/P 130 /71 , Respiratory Rate 20 , O2 SAT 100 , Room Air, O2 Flow Rate 3 . Vital Sign Comment: EKG Rhythm: Atrial Fibrillation Rhythm change?: N MD Notified?: N - MD Response: Latest Mata Fall Score: 20 Fall Risk: Low Risk Safety Measures: Call light Within Reach, Bed Alarm Zone 2, Side Rails Side Rails x2, Bed position Low and Locked. Fall Precautions: Patient Fall Education Report given to OLGA Santana.
--- NOTE | 2020-03-15 19:20 | NUR ---
Patient received from OLGA Jaramillo. Patient is awake, alert and oriented x 4. Patient on the phone right now. Patient is able to get up and walk. Patient is on room air satting at 95%. Junior catheter is patent and well draining. Patient has left AC 20 gauge and left wrist 20 gauge, patent and well draining. Patient asking for pain medication, will provide medication. Bed is in the lowest position, call light within reach. Will continue to monitor.
[2020-03-15 20:00] VITALS: BP 148/94
--- NOTE | 2020-03-15 20:30 | NUR ---
NURSE NOTES: Gave patient Dilaudid 1 mg IV at 2030 due to pain. Will assess and continue to monitor.
[2020-03-15] MEDS: Tamsulosin 0.4mg cap ORAL SCH (21:38)
[2020-03-16] VITALS: BP 119/82
--- NOTE | 2020-03-16 01:21 | Cardiology Progress Note ---
Subjective DATE OF SERVICE: Mar 15, 2020 Still has abdominal pain Heart rates remain up Monitor: AFib Objective Last 24 Hour Vital Signs Date Time Temp Pulse Resp B/P (MAP) Pulse Ox O2 Delivery O2 Flow Rate FiO2 03/16/20 00:00 120 03/15/20 20:00 138 03/15/20 17:42 113 130/71 03/15/20 16:30 98.6 20 130/71 (90) 100 03/15/20 16:00 Room Air 03/15/20 16:00 122 03/15/20 15:47 113 03/15/20 12:00 Room Air 03/15/20 12:00 97.3 116 20 144/63 (90) 100 03/15/20 11:39 113 03/15/20 10:43 86 18 98 03/15/20 09:25 109 132/98 03/15/20 09:00 Room Air 03/15/20 08:00 97.9 109 20 132/98 (109) 100 03/15/20 07:44 115 03/15/20 04:00 98.5 101 24 127/80 (96) 95 03/15/20 04:00 101 03/15/20 04:00 Room Air ROS: unchanged from eval of 03/14/20 HEENT: normal ENT inspection RHYTHM: Afib CARDIAC: irregularly irregular, rapid rate ABDOMEN: tender - suprapubic EXTREMITIES: No edema Laboratory Tests Test 03/15/20 04:15 White Blood Count 16.3 K/UL (4.8-10.8) H Red Blood Count 4.57 M/UL (4.70-6.10) L Hemoglobin 14.4 G/DL (14.2-18.0) Hematocrit 41.6 % (42.0-52.0) L Mean Corpuscular Volume 91 FL (80-99) Mean Corpuscular Hemoglobin 31.5 PG (27.0-31.0) H Mean Corpuscular Hemoglobin Concent 34.6 G/DL (32.0-36.0) Red Cell Distribution Width 12.5 % (11.6-14.8) Platelet Count 161 K/UL (150-450) Mean Platelet Volume 6.4 FL (6.5-10.1) L Neutrophils (%) (Auto) 76.1 % (45.0-75.0) H Lymphocytes (%) (Auto) 7.0 % (20.0-45.0) L Monocytes (%) (Auto) 14.4 % (1.0-10.0) H Eosinophils (%) (Auto) 0.3 % (0.0-3.0) Basophils (%) (Auto) 2.1 % (0.0-2.0) H Sodium Level 138 MMOL/L (136-145) Potassium Level 4.1 MMOL/L (3.5-5.1) Chloride Level 105 MMOL/L (98-107) Carbon Dioxide Level 25 MMOL/L (21-32) Anion Gap 9 mmol/L (5-15) Blood Urea Nitrogen 24 mg/dL (7-18) H Creatinine 1.8 MG/DL (0.55-1.30) H Estimat Glomerular Filtration Rate 36.7 mL/min (>60) Glucose Level 111 MG/DL (74-106) H Calcium Level 7.7 MG/DL (8.5-10.1) L Troponin I 0.060 ng/mL (0.000-0.056) Microbiology Date/Time Source Procedure Growth Status 03/13/20 22:00 Blood Blood Culture - Preliminary NO GROWTH AFTER 24 HOURS Resulted 03/13/20 21:15 Nasopharynx SARS-CoV-2 RdRp Gene Assay - Final Complete 03/13/20 21:00 Straight Cath Urine Culture - Preliminary NO GROWTH Resulted 03/13/20 19:45 Blood Blood Culture - Preliminary NO GROWTH AFTER 24 HOURS Resulted Assessment/Plan Assessment/Plan Chronic AFib, now with increased rates 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 Chronic myocardial ischemia S/P stone extraction Leukocytosis Ac renal insuff improved Advance beta giuliana Recheck troponin Abx Repeat CBC and renal fxn Varun Carter MD Mar 16, 2020 01:21
[2020-03-16] MEDS: HYDROmorphone 1mg/ml Carpuject IVP PRN ×2 (01:22→06:54)
[2020-03-16] MEDS ORDERED: Metoprolol Tartrate 5mg/5ml Inj IVP SCH (02:15)
[2020-03-16] MEDS: [UNRECOGNIZED DRUG - MIXTURE] RECTAL SCH ×4 (03:58→21:11)
[2020-03-16 04:00] VITALS: BP 135/87
[2020-03-16 06:59] LABS: HEMATOCRIT 44.8 % (42.0-52.0); HEMOGLOBIN 15.5 G/DL (14.2-18.0); MEAN CORPUSCULAR VOLUME 90 FL (80-99); PLATELET COUNT 180 K/UL (150-450); RED BLOOD COUNT 4.99 M/UL (4.70-6.10); RED CELL DISTRIBUTION WIDTH 11.9 % (11.6-14.8); WHITE BLOOD COUNT 18.2 K/UL (4.8-10.8)
[2020-03-16 07:26] LABS: ALBUMIN 2.9 G/DL (3.4-5.0); ALBUMIN/GLOBULIN RATIO 0.7 (1.0-2.7); BILIRUBIN,TOTAL 2.4 MG/DL (0.2-1.0); CALCIUM 8.4 MG/DL (8.5-10.1); CREATININE 1.8 MG/DL (0.55-1.30); POTASSIUM 3.9 MMOL/L (3.5-5.1)
[2020-03-16 07:31] LABS: BILIRUBIN,DIRECT 0.5 MG/DL (0.0-0.3)
[2020-03-16 08:00] VITALS: BP 125/83
--- NOTE | 2020-03-16 08:07 | NUR ---
NURSE HAND-OFF REPORT: Important Events on Shift:[] Patient Status: [stable] Diet: [Regular diet] Pending Orders: [] Pending Results/Labs:[] Pending MD notification:[] Latest Vital Signs: Temperature 101.8 , Pulse 121 , B/P 135 /87 , Respiratory Rate 20 , O2 SAT 96 , Room Air, O2 Flow Rate 3 . Vital Sign Comment: [] EKG Rhythm: Atrial Fibrillation Rhythm change?: N MD Notified?: N - MD Response: Latest Mata Fall Score: 20 Fall Risk: Low Risk Safety Measures: Call light Within Reach, Bed Alarm Zone 2, Side Rails Side Rails x2, Bed position Low and Locked. Fall Precautions: Patient Fall Education Report given to [OLGA Roberto].
[2020-03-16] MEDS: Docusate 100mg cap ORAL SCH ×2 (09:21→17:27)
[2020-03-16] MEDS: Metoprolol Tartrate 50mg tab ORAL SCH (09:22)
[2020-03-16] MEDS ORDERED: Vancomycin 1.5gm/NS Premix q24h IVPB SCH (11:00)
--- NOTE | 2020-03-16 11:48 | Pulmonology Progress Note ---
Subjective Interval Events: POd #2; heart rate 120-135 Constitutional: Reports: no symptoms HEENT: Repors: no symptoms Respiratory: Reports: no symptoms Cardiovascular: Reports: no symptoms Gastrointestinal/Abdominal: Reports: nausea Genitourinary: Reports: no symptoms Allergies: Coded Allergies: No Known Allergies (Unverified , 03/13/20) Objective Last 24 Hour Vital Signs Date Time Temp Pulse Resp B/P (MAP) Pulse Ox O2 Delivery O2 Flow Rate FiO2 03/16/20 09:22 132 125/74 03/16/20 08:50 Room Air 03/16/20 08:48 98.9 03/16/20 08:00 101.8 124 20 125/83 (97) 92 03/16/20 08:00 136 03/16/20 04:00 99.5 117 20 135/87 (103) 96 03/16/20 04:00 Room Air 03/16/20 04:00 121 03/16/20 03:03 115 145/87 03/16/20 00:00 120 03/16/20 00:00 Room Air 03/16/20 00:00 98.6 120 20 119/82 (94) 96 03/15/20 20:00 Room Air 03/15/20 20:00 98.0 18 148/94 (112) 95 03/15/20 20:00 138 03/15/20 17:42 113 130/71 03/15/20 16:30 98.6 20 130/71 (90) 100 03/15/20 16:00 Room Air 03/15/20 16:00 122 03/15/20 15:47 113 03/15/20 12:00 Room Air 03/15/20 12:00 97.3 116 20 144/63 (90) 100 Intake and Output 03/15/20 03/16/20 19:00 07:00 Intake Total 1540 ml Output Total 1000 ml 900 ml Balance 540 ml -900 ml Intake Oral 1440 ml IV Total 100 ml Output Urine Total 1000 ml 900 ml General Appearance: no acute distress HEENT: normocephalic Respiratory: chest wall non-tender, lungs clear Cardiovascular: normal peripheral pulses, normal rate Abdomen: normal bowel sounds Extremities: no cyanosis Microbiology Date/Time Source Procedure Growth Status 03/13/20 22:00 Blood Blood Culture - Preliminary NO GROWTH AFTER 48 HOURS Resulted 03/13/20 21:15 Nasopharynx SARS-CoV-2 RdRp Gene Assay - Final Complete 03/13/20 21:00 Straight Cath Urine Culture - Final NO GROWTH AFTER 48 HOURS Complete 03/13/20 19:45 Blood Blood Culture - Preliminary NO GROWTH AFTER 48 HOURS Resulted Laboratory Tests 03/16/20 05:20: White Blood Count 18.2H, Red Blood Count 4.99, Hemoglobin 15.5, Hematocrit 44.8, Mean Corpuscular Volume 90, Mean Corpuscular Hemoglobin 31.1H, Mean Corpuscular Hemoglobin Concent 34.6, Red Cell Distribution Width 11.9, Platelet Count 180, Mean Platelet Volume 6.2L, Neutrophils (%) (Auto) , Lymphocytes (%) (Auto) , Monocytes (%) (Auto) , Eosinophils (%) (Auto) , Basophils (%) (Auto) , Differential Total Cells Counted 100, Neutrophils % (Manual) 82H, Lymphocytes % (Manual) 8L, Monocytes % (Manual) 10, Eosinophils % (Manual) 0, Basophils % (Manual) 0, Band Neutrophils 0, Platelet Estimate Adequate, Platelet Morphology Normal, Red Blood Cell Morphology Normal, Sodium Level 136, Potassium Level 3.9, Chloride Level 101, Carbon Dioxide Level 23, Anion Gap 12, Blood Urea Nitrogen 20H, Creatinine 1.8H, Estimat Glomerular Filtration Rate 36.7, Glucose Level 118H, Lactic Acid Level 1.00, Calcium Level 8.4L, Magnesium Level 1.6L, Total Bilirubin 2.4H, Direct Bilirubin 0.5H, Aspartate Amino Transf (AST/SGOT) 26, Alanine Aminotransferase (ALT/SGPT) 23, Alkaline Phosphatase 61, Troponin I 0.073H, Total Protein 6.9, Albumin 2.9L, Globulin 4.0, Albumin/Globulin Ratio 0.7L Current Medications Medications (Trade) Dose Ordered Sig/Evelyn Route PRN Reason Start Time Stop Time Status Last Admin Dose Admin Acetaminophen (Tylenol) 650 mg Q6H PRN ORAL Mild Pain (Pain Scale 1-3) 03/14/20 13:15 04/13/20 13:14 03/16/20 07:50 Acetaminophen/ Hydrocodone Bitart ([place] 5/325) 1 tab Q4H PRN ORAL Moderate Pain (Pain Scale 4-6) 03/14/20 13:15 03/21/20 13:14 Artificial Tears (Akwa-Tears) 2 drop Q2H PRN BOTH EYES Dry Eyes 03/15/20 13:30 04/14/20 13:29 03/15/20 14:37 Belladonna Alkaloids/Opium (B & O 16-A) 60 mg Q6H RECTAL 03/15/20 09:00 03/19/20 08:59 03/16/20 03:58 Bisacodyl (Dulcolax) 10 mg Q6H PRN RECTAL Constipation 03/15/20 10:00 06/13/20 09:59 Docusate Sodium (Colace) 100 mg TWICE A DAY ORAL 03/14/20 18:00 04/13/20 17:59 03/16/20 09:21 Famotidine (Pepcid) 40 mg DAILY ORAL 03/15/20 09:00 06/13/20 08:59 03/16/20 09:22 Finasteride (Proscar) 5 mg DAILY ORAL 03/14/20 15:30 06/12/20 15:29 03/16/20 09:22 Hydromorphone HCl (Dilaudid) 0.5 mg Q4H PRN IVP pain 4-6 03/14/20 00:00 03/21/20 00:00 03/14/20 03:24 Hydromorphone HCl (Dilaudid) 1 mg Q3H PRN IVP pain 7-10 03/14/20 13:15 03/21/20 13:14 03/16/20 06:54 Magnesium Hydroxide (Mom) 30 ml Q6H PRN ORAL Constipation 03/15/20 10:00 04/14/20 09:59 03/16/20 09:34 Magnesium Sulfate 100 ml @ 100 mls/hr Q1H IVPB 03/16/20 11:45 03/16/20 13:44 Metoprolol Tartrate (Lopressor) 50 mg BID ORAL 03/15/20 18:00 06/12/20 17:59 03/16/20 09:22 Ondansetron HCl (Zofran) 4 mg Q6H PRN IVP Nausea & Vomiting 03/14/20 13:15 04/13/20 13:14 Phenazopyridine HCl (Pyridium) 200 mg THREE TIMES A DAY ORAL 03/16/20 13:00 03/19/20 12:59 Piperacillin Sod/ Tazobactam Sod 3.375 gm/Sodium Chloride 110 ml @ 27.5 mls/hr EVERY 8 HOURS IVPB 03/16/20 14:00 03/21/20 13:59 Tamsulosin HCl (Flomax) 0.8 mg BEDTIME ORAL 03/14/20 21:00 04/13/20 20:59 03/15/20 21:38 Temazepam (RestoriL) 7.5 mg DAILYPRN PRN ORAL Insomnia 03/14/20 13:15 03/21/20 13:14 Vancomycin HCl (Vanco pharmacy to dose) 1 ea DAILY PRN MISC Per rx protocol 03/16/20 09:30 04/15/20 09:29 Vancomycin/Sodium Chloride 275 ml @ 137.5 mls/ hr ONCE IVPB 03/16/20 11:00 03/16/20 13:00 03/16/20 11:16 Assessment/Plan Assessment/Plan IMPRESSION: 1. Urolithiasis. 2. Troponin leak. 3. Chronic atrial fibrillation. 4. Status post WATCHMAN procedure. 5. Chronic beta blockade. 6. POD #2; s/p cystoscopy, stent and stone removal DISCUSSION: Continue IV fluids. IV levaquin switched to Vanco/Zosyn due to increasing leucocytosis Rate control Cardiology following Omar Harvey Omar Syed MD Mar 16, 2020 11:48
[2020-03-16 12:00] VITALS: BP 103/73
[2020-03-16] MEDS: Phenazopyridine 200mg tab ORAL SCH ×2 (12:13→17:28)
[2020-03-16] MEDS: Piperacillin/Tazobactam 3.375 GM in NS 110 ML IVPB SCH ×2 (14:00→21:12)
[2020-03-16] MEDS ORDERED: Metoprolol Tartrate 5mg/5ml Inj IVP PRN (15:03)
[2020-03-16 16:00] VITALS: BP 120/69
--- NOTE | 2020-03-16 16:43 | Diagnostic Imaging Report ---
Indication: Shortness of breath Technique: One view of the chest Comparison: 03/13/2020 Findings: The heart is borderline enlarged. Lungs and pleural spaces are clear. No significant change Impression: Borderline cardiomegaly. No acute process
--- NOTE | 2020-03-16 17:10 | Infectious Diseases Prog Note ---
Assessment/Plan Assessment/Plan Full consult dictated: A) 1) leukocytosis, fevers, ? sepsis, 2) s/p right ureteral stone removal and stent placement 3) pmh noted P) 1) zosyn and vancomycin 2) f/u on cultures 3) consider oral augmentin on discharge if cultures negative and patient clinically improved 4) d/w Dr. Sullivan 5) thank you Subjective HEENT: Denies: congestion Allergies: Coded Allergies: No Known Allergies (Unverified , 03/13/20) Objective Last 24 Hour Vital Signs Date Time Temp Pulse Resp B/P (MAP) Pulse Ox O2 Delivery O2 Flow Rate FiO2 03/16/20 09:22 132 125/74 03/16/20 08:50 Room Air 03/16/20 08:48 98.9 03/16/20 08:00 101.8 124 20 125/83 (97) 92 03/16/20 08:00 136 03/16/20 04:00 99.5 117 20 135/87 (103) 96 03/16/20 04:00 Room Air 03/16/20 04:00 121 03/16/20 03:03 115 145/87 03/16/20 00:00 120 03/16/20 00:00 Room Air 03/16/20 00:00 98.6 120 20 119/82 (94) 96 03/15/20 20:00 Room Air 03/15/20 20:00 98.0 18 148/94 (112) 95 03/15/20 20:00 138 03/15/20 17:42 113 130/71 Height (Feet): 5 Height (Inches): 9.00 Weight (Pounds): 199 Microbiology Date/Time Source Procedure Growth Status 03/13/20 22:00 Blood Blood Culture - Preliminary NO GROWTH AFTER 48 HOURS Resulted 03/13/20 21:15 Nasopharynx SARS-CoV-2 RdRp Gene Assay - Final Complete 03/13/20 21:00 Straight Cath Urine Culture - Final NO GROWTH AFTER 48 HOURS Complete 03/13/20 19:45 Blood Blood Culture - Preliminary NO GROWTH AFTER 48 HOURS Resulted Laboratory Tests Test 03/16/20 05:20 White Blood Count 18.2 K/UL (4.8-10.8) H Red Blood Count 4.99 M/UL (4.70-6.10) Hemoglobin 15.5 G/DL (14.2-18.0) Hematocrit 44.8 % (42.0-52.0) Mean Corpuscular Volume 90 FL (80-99) Mean Corpuscular Hemoglobin 31.1 PG (27.0-31.0) H Mean Corpuscular Hemoglobin Concent 34.6 G/DL (32.0-36.0) Red Cell Distribution Width 11.9 % (11.6-14.8) Platelet Count 180 K/UL (150-450) Mean Platelet Volume 6.2 FL (6.5-10.1) L Neutrophils (%) (Auto) % (45.0-75.0) Lymphocytes (%) (Auto) % (20.0-45.0) Monocytes (%) (Auto) % (1.0-10.0) Eosinophils (%) (Auto) % (0.0-3.0) Basophils (%) (Auto) % (0.0-2.0) Differential Total Cells Counted 100 Neutrophils % (Manual) 82 % (45-75) H Lymphocytes % (Manual) 8 % (20-45) L Monocytes % (Manual) 10 % (1-10) Eosinophils % (Manual) 0 % (0-3) Basophils % (Manual) 0 % (0-2) Band Neutrophils 0 % (0-8) Platelet Estimate Adequate Platelet Morphology Normal Red Blood Cell Morphology Normal Sodium Level 136 MMOL/L (136-145) Potassium Level 3.9 MMOL/L (3.5-5.1) Chloride Level 101 MMOL/L (98-107) Carbon Dioxide Level 23 MMOL/L (21-32) Anion Gap 12 mmol/L (5-15) Blood Urea Nitrogen 20 mg/dL (7-18) H Creatinine 1.8 MG/DL (0.55-1.30) H Estimat Glomerular Filtration Rate 36.7 mL/min (>60) Glucose Level 118 MG/DL (74-106) H Lactic Acid Level 1.00 mmol/L (0.4-2.0) Calcium Level 8.4 MG/DL (8.5-10.1) L Magnesium Level 1.6 MG/DL (1.8-2.4) L Total Bilirubin 2.4 MG/DL (0.2-1.0) H Direct Bilirubin 0.5 MG/DL (0.0-0.3) H Aspartate Amino Transf (AST/SGOT) 26 U/L (15-37) Alanine Aminotransferase (ALT/SGPT) 23 U/L (12-78) Alkaline Phosphatase 61 U/L (46-116) Troponin I 0.073 ng/mL (0.000-0.056) Total Protein 6.9 G/DL (6.4-8.2) Albumin 2.9 G/DL (3.4-5.0) L Globulin 4.0 g/dL Albumin/Globulin Ratio 0.7 (1.0-2.7) L Current Medications Medications (Trade) Dose Ordered Sig/Evelyn Route PRN Reason Start Time Stop Time Status Last Admin Dose Admin Acetaminophen (Tylenol) 650 mg Q6H PRN ORAL Mild Pain (Pain Scale 1-3) 03/14/20 13:15 04/13/20 13:14 03/16/20 07:50 Acetaminophen/ Hydrocodone Bitart (Ericson 5/325) 1 tab Q4H PRN ORAL Moderate Pain (Pain Scale 4-6) 03/14/20 13:15 03/21/20 13:14 Artificial Tears (Akwa-Tears) 2 drop Q2H PRN BOTH EYES Dry Eyes 03/15/20 13:30 04/14/20 13:29 03/15/20 14:37 Belladonna Alkaloids/Opium (B & O 16-A) 60 mg Q6H RECTAL 03/15/20 09:00 03/19/20 08:59 03/16/20 03:58 Bisacodyl (Dulcolax) 10 mg Q6H PRN RECTAL Constipation 03/15/20 10:00 06/13/20 09:59 Docusate Sodium (Colace) 100 mg TWICE A DAY ORAL 03/14/20 18:00 04/13/20 17:59 03/16/20 09:21 Famotidine (Pepcid) 40 mg DAILY ORAL 03/15/20 09:00 06/13/20 08:59 03/16/20 09:22 Finasteride (Proscar) 5 mg DAILY ORAL 03/14/20 15:30 06/12/20 15:29 03/16/20 09:22 Hydromorphone HCl (Dilaudid) 0.5 mg Q4H PRN IVP pain 4-6 10/7/20 00:00 03/21/20 00:00 03/14/20 03:24 Hydromorphone HCl (Dilaudid) 1 mg Q3H PRN IVP pain 7-10 03/14/20 13:15 03/21/20 13:14 03/16/20 06:54 Magnesium Hydroxide (Mom) 30 ml Q6H PRN ORAL Constipation 03/15/20 10:00 04/14/20 09:59 03/16/20 09:34 Metoprolol Tartrate (Lopressor) 5 mg ONCE PRN IVP POST HD 03/16/20 15:03 03/17/20 23:59 Metoprolol Tartrate (Lopressor) 75 mg BID ORAL 03/16/20 18:00 06/14/20 17:59 Ondansetron HCl (Zofran) 4 mg Q6H PRN IVP Nausea & Vomiting 03/14/20 13:15 04/13/20 13:14 Phenazopyridine HCl (Pyridium) 200 mg THREE TIMES A DAY ORAL 03/16/20 13:00 03/19/20 12:59 03/16/20 12:13 Piperacillin Sod/ Tazobactam Sod 3.375 gm/Sodium Chloride 110 ml @ 27.5 mls/hr EVERY 8 HOURS IVPB 03/16/20 14:00 03/21/20 13:59 03/16/20 14:00 Tamsulosin HCl (Flomax) 0.8 mg BEDTIME ORAL 03/14/20 21:00 04/13/20 20:59 03/15/20 21:38 Temazepam (RestoriL) 7.5 mg DAILYPRN PRN ORAL Insomnia 03/14/20 13:15 03/21/20 13:14 Vancomycin HCl (Vanco pharmacy to dose) 1 ea DAILY PRN MISC Per rx protocol 03/16/20 09:30 04/15/20 09:29 Susy Wilson MD Mar 16, 2020 17:10
--- NOTE | 2020-03-16 17:15 | Operative Note - Dictated ---
DATE OF OPERATION: 03/14/2020 PREOPERATIVE DIAGNOSES: Obstructing distal right ureteral stone, multiple right renal stones, severe hydronephrosis, acute renal insufficiency. POSTOPERATIVE DIAGNOSES: Obstructing distal right ureteral stone, multiple right renal stones, severe hydronephrosis, acute renal insufficiency. OPERATION: Cystoscopy, laser lithotripsy, and semi-rigid ureteroscopy of the distal right ureteral stone. Flexible ureteroscopy and nephroscopy with combined laser and extracorporeal shockwave lithotripsy of the right renal stones with stone removals, retrograde pyelogram, double-J stent placement. OPERATED BY: Rainer Sullivan MD. INDICATIONS FOR SURGERY: Patient had multiple renal stones and earlier this year in October developed right renal colic. He had 5 mm stones, but most likely he eventually passed after 2 months of medications and hydration. Feels comfortable until recently came to my office on Thursday with complaints of repeat finding of right renal colic. Renal ultrasound was done showing [id number] right hydronephrosis that was followed by a CAT scan that confirmed the diagnosis of 7 mm stone in the distal right ureter with moderate to severe hydronephrosis and also 3 additional stones in the right kidney. I discussed with patient at great length the strategy for future treatment. I was concerned about hydronephrosis and asked patient to go and get admitted to [facility]. On admission in the ER, his white count was 14. He had a repeat scanning that showed stone in the same position, slightly larger size 9 mm in the distal right ureter and marked hydronephrosis with a creatinine of 2.1. He was placed NPO and prepared for surgery. He also had rapid atrial fibrillation. Dr. Carter and Dr. Iyer were consulted and started treated him and finally cleared him for surgery. I discussed with patient all potential complications due to the size of his prostate the chance of urinary retention postoperatively and urinary tract infection, bleedings, and might be were discussed and signed a consent. DESCRIPTION OF OPERATION: Patient was brought to the operating room, placed in lithotomy position, prepped and draped in standard fashion. Under general anesthesia, cystoscope was introduced. The urethra was normal, but the prostate was severely enlarged with large median lobe almost . Eventually, we got into the bladder and right ureter was found. Catheter was placed and guidewire was placed in the right ureter. Stone was lodged with complete obstruction approximately 1.5 to 2 cm from the ureteral orifice. With some difficulty, we bypassed the stone with a guidewire. Using semi-rigid ureteroscope, bladder was introduced into the right ureter. Stone was found and rigid 360 micron fiber and holmium laser stone was broken into 3 pieces and they were removed for pathologic examination. Flexible ureteroscopy afterwards revealed the stones in the mid and lower calyx of the right kidney. Using 500 shocks, an extracorporeal shock wave lithotripsy with 9 kilovolts, stones were fragmented. One of the stones were small enough and removed for pathologic examination. The remaining stones were fragmented completely well with no evidence of externalization. Double-J stent 7 and 26 was placed left indwelling as well with the Junior catheter. Patient was stable and transferred to recovery room. Sponge and instrument count was correct. Rainer Sullivan M.D. DR: SANJANA JOB#: [id number] CC:
[2020-03-16 17:55] LABS: APPEARANCE,URINE VERY CLOUDY; BILIRUBIN, URINE 2+ (NEGATIVE); COLOR,URINE BROWN; GLUCOSE, URINE (UA) NEGATIVE (NEGATIVE); KETONES,URINE NEGATIVE (NEGATIVE); LEUKOCYTE ESTERASE ,URINE 1+ (NEGATIVE); NITRITE,URINE POSITIVE (NEGATIVE); PH,URINE 5 (4.5-8.0); PROTEIN,URINE 3+ (NEGATIVE); UROBILINOGEN,URINE 4 MG/DL (0.0-1.0)
[2020-03-16] MEDS ORDERED: Sterile Water Irrig 1000ml IRRIG ONE (18:10)
[2020-03-16] MEDS ORDERED: Tubing IV Secondary IV ONE (18:10)
--- NOTE | 2020-03-16 19:30 | NUR ---
NURSE NOTES: Patient received from OLGA Roberto. Patient is awake, alert and oriented x 4. Patient watching TV right now, very talkative. Patient has an IV left 20 gauge and left wrist 22 gauge, patent and flushed. Patient has urinary urgency but able to use urinal. Bed is in the lowest position, call light within reach. Will continue to monitor.
[2020-03-16 20:00] VITALS: BP 112/74
[2020-03-16] MEDS: Tamsulosin 0.4mg cap ORAL SCH (21:11)
--- NOTE | 2020-03-16 22:30 | Consultation ---
DATE OF CONSULTATION: 03/16/2020 INFECTIOUS DISEASE CONSULTATION CONSULTING PHYSICIAN: Susy Wilson MD. ATTENDING PHYSICIAN: Osiel Iyer MD. REFERRING PHYSICIAN: Rainer Sullivan MD. REASON FOR CONSULTATION: Elevated white count, fevers, questionable sepsis. CHIEF COMPLAINT: Patient's chief complaint coming into the hospital is kidney stone, hydronephrosis. HISTORY OF PRESENT ILLNESS: This is a very pleasant 79-year-old male who presented to [facility] with flank pain, I believe on the right. A CT scan was done of the abdomen and pelvis, which showed obstructing 9 mm stone in the distal right ureter. Patient is status post right ureteral stone removal and stent placement. Infectious Disease consultation is requested because the patient has postoperative fevers and leukocytosis and SIRS criteria. He also has elevated creatinine. White count is as high as 18.2 and has been febrile up to 101.8 and has been tachycardic. Patient was on looks like a fluoroquinolone (Levaquin) initially, but now was started on Zosyn and vancomycin. Infectious Disease consultation is requested for antibiotic management. Patient has fevers, leukocytosis postoperatively. Case was discussed with Dr. Rainer Sullivan and the patient. REVIEW OF SYSTEMS: CONSTITUTIONAL: Patient's right flank pain is improved. He had fevers, but currently no chills. No night sweats. HEAD AND NECK: No mention of headache or neck stiffness, thrush, or dysphagia. CARDIAC: No chest pain or palpitations. GASTROINTESTINAL: No nausea, vomiting, abdominal pain, or diarrhea. He has right CVA tenderness that is improved. GENITOURINARY: No CVA tenderness. No mention of frequency or dysuria currently. PULMONARY: No cough, congestion, or shortness of breath. No productive cough. No hemoptysis or secretions. SKIN: No rash or itching. EXTREMITIES: No extremity pain. NEUROLOGIC: No seizures. Generalized fatigue. No weakness. No focal changes. MUSCULOSKELETAL: No joint pain. PAST MEDICAL HISTORY: Atrial fibrillation, status post Watchman procedure. Patient also has history of urolithiasis, again status post right ureteral stone removal and stent placement. Patient also has what looks like history of chronic diastolic CHF. He has an elevated creatinine. No history of diabetes or hypertension mentioned. ALLERGIES: No known drug allergies. No antibiotic allergies. SOCIAL HISTORY: Negative for smoking, alcohol, or drug abuse. FAMILY HISTORY: Noncontributory. Negative for tuberculosis or cancer. MEDICATIONS: Upon reviewing the MAR, he is on following medication. He is on metoprolol, Zosyn. He is on Pyridium. He is on Vanco per pharmacy dosing. He is on bisacodyl. He is on magnesium hydroxide, famotidine. He is on prn meds, docusate, Zofran, temazepam, finasteride, hydrocodone, acetaminophen, hydromorphone. Outside medications noted and reconciliated. PHYSICAL EXAMINATION: VITAL SIGNS: Pulse rate is 132, respiratory rate 20, saturation 98% on room air, T-max 101.8, and blood pressure is 125/83. GENERAL: Alert, responsive. Oriented x3. No acute distress. HEAD AND NECK: Oral exam, no thrush. Eye exam, no icterus. Normocephalic. Neck is supple. No JVD. CARDIAC: Mostly regular, maybe occasionally regular. No gallop or murmur. ABDOMEN: Soft. Positive bowel sounds. Nontender. LUNGS: Clear bilaterally. No rhonchi or rales. SKIN: No rash. MUSCULOSKELETAL: No effusions. Legs are without cellulitis. PERIPHERAL VASCULAR: No cyanosis or gangrene. No septic arthritis. NEUROLOGIC: Intact. Alert and oriented x3. GENITOURINARY: No Junior. No CVA tenderness. LINE SITES: Without phlebitis. LABORATORY DATA: White count 18.2, hemoglobin 15.5. Creatinine 1.8. LFTs noted. UA was 0 to 2 white cells. Cultures, previous blood and urine culture negative. Followup blood cultures have been ordered. COVID testing is negative. CT scan of the abdomen and pelvis showed obstructing 9 mm stone in the distal right ureteral the ureter and hydronephrosis. ASSESSMENT AND PLAN: 1. Patient has right ureteral stone removal and stent placement for right kidney stone and hydronephrosis. Patient has postoperative leukocytosis, fevers, possible sepsis, SIRS criteria. At this time, I agree with Vanco and Zosyn for empiric coverage. Continue Vanco and Zosyn for empiric coverage for possible sepsis and leukocytosis and fevers. Check cultures, laboratories, and chest x-ray. Follow up on urinalysis also has been done. Case discussed with Dr. Sullivan. If patient is stable and urine culture is negative, Augmentin is a reasonable option for oral antibiotics since resistant to Levaquin, fluoroquinolones at this time. 2. Elevated creatinine. 3. Chronic atrial fibrillation. 4. Watchman procedure. 5. History of CHF, looks like diastolic CHF. 6. Obstructive uropathy, status post stent placement. 7. Patient has no history of diabetes or hypertension. 8. No known drug allergies. 9. Social history is negative. 10. Family history is contributory. 11. MAR was noted. 12. Case was discussed with RN. 13. Continue treatment per primary consultants. 14. Case was discussed with Dr. Sullivan. 15. Orders were noted and entered. Susy Wilson M.D. DR: KORIN JOB#: [id number] CC: KENDRA
[2020-03-17] VITALS: BP 119/72
--- NOTE | 2020-03-17 00:12 | Cardiology Progress Note ---
Subjective DATE OF SERVICE: Mar 16, 2020 Still has abdominal pain Heart rates remain up - but improved post advancing beta giuliana dosing Monitor: AFib Fevers noted Objective Last 24 Hour Vital Signs Date Time Temp Pulse Resp B/P (MAP) Pulse Ox O2 Delivery O2 Flow Rate FiO2 03/16/20 21:00 Room Air 03/16/20 20:29 100.0 03/16/20 20:00 110 03/16/20 20:00 100.0 107 20 112/74 (87) 96 03/16/20 17:28 132 125/74 03/16/20 16:00 79 03/16/20 16:00 98.6 79 19 120/69 (86) 98 03/16/20 12:00 98.1 89 18 103/73 (83) 97 03/16/20 12:00 89 03/16/20 09:22 132 125/74 03/16/20 08:50 Room Air 03/16/20 08:48 98.9 03/16/20 08:00 101.8 124 20 125/83 (97) 92 03/16/20 08:00 136 03/16/20 04:00 99.5 117 20 135/87 (103) 96 03/16/20 04:00 Room Air 03/16/20 04:00 121 03/16/20 03:03 115 145/87 ROS: unchanged from eval of 03/14/20 HEENT: normal ENT inspection RHYTHM: Afib CARDIAC: irregularly irregular, rapid rate ABDOMEN: tender - suprapubic EXTREMITIES: No edema Laboratory Tests Test 03/16/20 05:20 03/16/20 17:45 White Blood Count 18.2 K/UL (4.8-10.8) H Red Blood Count 4.99 M/UL (4.70-6.10) Hemoglobin 15.5 G/DL (14.2-18.0) Hematocrit 44.8 % (42.0-52.0) Mean Corpuscular Volume 90 FL (80-99) Mean Corpuscular Hemoglobin 31.1 PG (27.0-31.0) H Mean Corpuscular Hemoglobin Concent 34.6 G/DL (32.0-36.0) Red Cell Distribution Width 11.9 % (11.6-14.8) Platelet Count 180 K/UL (150-450) Mean Platelet Volume 6.2 FL (6.5-10.1) L Neutrophils (%) (Auto) % (45.0-75.0) Lymphocytes (%) (Auto) % (20.0-45.0) Monocytes (%) (Auto) % (1.0-10.0) Eosinophils (%) (Auto) % (0.0-3.0) Basophils (%) (Auto) % (0.0-2.0) Differential Total Cells Counted 100 Neutrophils % (Manual) 82 % (45-75) H Lymphocytes % (Manual) 8 % (20-45) L Monocytes % (Manual) 10 % (1-10) Eosinophils % (Manual) 0 % (0-3) Basophils % (Manual) 0 % (0-2) Band Neutrophils 0 % (0-8) Platelet Estimate Adequate Platelet Morphology Normal Red Blood Cell Morphology Normal Sodium Level 136 MMOL/L (136-145) Potassium Level 3.9 MMOL/L (3.5-5.1) Chloride Level 101 MMOL/L (98-107) Carbon Dioxide Level 23 MMOL/L (21-32) Anion Gap 12 mmol/L (5-15) Blood Urea Nitrogen 20 mg/dL (7-18) H Creatinine 1.8 MG/DL (0.55-1.30) H Estimat Glomerular Filtration Rate 36.7 mL/min (>60) Glucose Level 118 MG/DL (74-106) H Lactic Acid Level 1.00 mmol/L (0.4-2.0) Calcium Level 8.4 MG/DL (8.5-10.1) L Magnesium Level 1.6 MG/DL (1.8-2.4) L Total Bilirubin 2.4 MG/DL (0.2-1.0) H Direct Bilirubin 0.5 MG/DL (0.0-0.3) H Aspartate Amino Transf (AST/SGOT) 26 U/L (15-37) Alanine Aminotransferase (ALT/SGPT) 23 U/L (12-78) Alkaline Phosphatase 61 U/L (46-116) Troponin I 0.073 ng/mL (0.000-0.056) Total Protein 6.9 G/DL (6.4-8.2) Albumin 2.9 G/DL (3.4-5.0) L Globulin 4.0 g/dL Albumin/Globulin Ratio 0.7 (1.0-2.7) L Urine Color Brown Urine Appearance Very cloudy Urine pH 5 (4.5-8.0) Urine Specific [place] 1.020 (1.005-1.035) Urine Protein 3+ (NEGATIVE) H Urine Glucose (UA) Negative (NEGATIVE) Urine Ketones Negative (NEGATIVE) Urine Blood 5+ (NEGATIVE) H Urine Nitrite Positive (NEGATIVE) H Urine Bilirubin 2+ (NEGATIVE) H Urine Ictotest Negative (NEGATIVE) Urine Urobilinogen 4 MG/DL (0.0-1.0) H Urine Leukocyte Esterase 1+ (NEGATIVE) H Urine RBC Tntc /HPF (0 - 0) H Urine WBC 10-15 /HPF (0 - 0) H Urine Squamous Epithelial Cells None /LPF (NONE/OCC) Urine Amorphous Sediment Many /LPF (NONE) H Urine Bacteria Few /HPF (NONE) Assessment/Plan Assessment/Plan Chronic AFib, now with increased rates 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 Chronic myocardial ischemia S/P stone extraction Leukocytosis Ac renal insuff improved Persisting troponin leak Advance beta giuliana Recheck troponin Abx Repeat CBC and renal fxn Consider stress test once acute illness resolves Varun Carter MD Mar 17, 2020 00:12
[2020-03-17] MEDS: [UNRECOGNIZED DRUG - MIXTURE] RECTAL SCH ×2 (03:29→09:24)
[2020-03-17 04:00] VITALS: BP 127/69
[2020-03-17] MEDS: Piperacillin/Tazobactam 3.375 GM in NS 110 ML IVPB SCH ×2 (05:31→13:18)
[2020-03-17 07:21] LABS: BASOPHILS % (AUTO) 1.2 % (0.0-2.0); EOSINOPHILS % (AUTO) 0.6 % (0.0-3.0); HEMATOCRIT 42.5 % (42.0-52.0); HEMOGLOBIN 15.1 G/DL (14.2-18.0); LYMPHOCYTES % (AUTO) 5.1 % (20.0-45.0); MEAN CORPUSCULAR VOLUME 90 FL (80-99); MONOCYTES % (AUTO) 12.4 % (1.0-10.0); NEUTROPHILS % (AUTO) 80.7 % (45.0-75.0); PLATELET COUNT 189 K/UL (150-450); RED BLOOD COUNT 4.71 M/UL (4.70-6.10); RED CELL DISTRIBUTION WIDTH 12.2 % (11.6-14.8); WHITE BLOOD COUNT 16.9 K/UL (4.8-10.8)
[2020-03-17 07:41] LABS: ALBUMIN 2.8 G/DL (3.4-5.0); ALBUMIN/GLOBULIN RATIO 0.7 (1.0-2.7); BILIRUBIN,TOTAL 2.3 MG/DL (0.2-1.0); CALCIUM 8.4 MG/DL (8.5-10.1); CREATININE 1.7 MG/DL (0.55-1.30); POTASSIUM 3.6 MMOL/L (3.5-5.1)
--- NOTE | 2020-03-17 07:41 | NUR ---
NURSE HAND-OFF REPORT: Important Events on Shift:[] Patient Status: [] Diet: [] Pending Orders: [] Pending Results/Labs:[] Pending MD notification:[] Latest Vital Signs: Temperature 99.0 , Pulse 98 , B/P 127 /69 , Respiratory Rate 20 , O2 SAT 96 , Room Air, O2 Flow Rate 3 . Vital Sign Comment: [] EKG Rhythm: Afib/Aflutter Rhythm change?: N MD Notified?: N - MD Response: Latest Mtaa Fall Score: 20 Fall Risk: Low Risk Safety Measures: Call light Within Reach, Bed Alarm Zone 1, Side Rails Side Rails x2, Bed position Low and Locked. Fall Precautions: Yellow Socks Yellow Gown Door Sign Patient Fall Education Report given to [OLGA Kramer].
--- NOTE | 2020-03-17 07:42 | NUR ---
NURSE NOTES: Received report from Jhad/RN. Observed patient awake, eating breakfast. AAx4, Able to make needs known. On room air, no acute distress/SOB noted, breathing evenly and unlabored. Denies pain at this time. IV site patent and intact, Zosyn running at this time. Bed in low position and locked, Call light within reach. Encouraged to use call light when needed. Will continue plan of care.
[2020-03-17 07:45] LABS: BILIRUBIN,DIRECT 0.6 MG/DL (0.0-0.3)
[2020-03-17 08:00] VITALS: BP 142/77
[2020-03-17] MEDS ORDERED: Vancomycin 1.5gm/NS Premix q24h IVPB SCH (09:00)
[2020-03-17] MEDS: Phenazopyridine 200mg tab ORAL SCH ×2 (09:22→13:18)
[2020-03-17] MEDS: Docusate 100mg cap ORAL SCH (09:22)
[2020-03-17 12:00] VITALS: BP 153/97
--- NOTE | 2020-03-17 12:44 | Surgery Progress Note ---
Surgery Progress Note Subjective Additional Comments late entry for patients seen pm 03/16 wbc elevated whitehead out Objective Last 24 Hour Vital Signs Date Time Temp Pulse Resp B/P (MAP) Pulse Ox O2 Delivery O2 Flow Rate FiO2 03/17/20 12:00 98.2 96 20 153/97 (115) 96 03/17/20 12:00 96 03/17/20 09:23 110 142/77 03/17/20 09:00 Room Air 03/17/20 08:00 116 03/17/20 08:00 98.6 110 20 142/77 (98) 96 03/17/20 04:00 99.0 98 20 127/69 (88) 96 03/17/20 04:00 93 03/17/20 00:00 98.6 100 19 119/72 (88) 96 03/17/20 00:00 100 03/16/20 21:00 Room Air 03/16/20 20:29 100.0 03/16/20 20:00 111 03/16/20 20:00 100.0 107 20 112/74 (87) 96 03/16/20 17:28 132 125/74 03/16/20 16:00 79 03/16/20 16:00 98.6 79 19 120/69 (86) 98 I&O Intake and Output 03/16/20 03/17/20 19:00 07:00 Intake Total 1420 ml Output Total 450 ml 150 ml Balance 970 ml -150 ml Intake Oral 420 ml Other 1000 ml Output Urine Total 450 ml 150 ml # Voids 1 Cardiovascular: RSR Respiratory: clear Abdomen: soft, distended, non-tender, non-distended Extremities: no edema, no tenderness, no cyanosis Laboratory Tests Test 03/16/20 17:45 03/17/20 05:40 Urine Color Brown Urine Appearance Very cloudy Urine pH 5 (4.5-8.0) Urine Specific [place] 1.020 (1.005-1.035) Urine Protein 3+ (NEGATIVE) H Urine Glucose (UA) Negative (NEGATIVE) Urine Ketones Negative (NEGATIVE) Urine Blood 5+ (NEGATIVE) H Urine Nitrite Positive (NEGATIVE) H Urine Bilirubin 2+ (NEGATIVE) H Urine Ictotest Negative (NEGATIVE) Urine Urobilinogen 4 MG/DL (0.0-1.0) H Urine Leukocyte Esterase 1+ (NEGATIVE) H Urine RBC Tntc /HPF (0 - 0) H Urine WBC 10-15 /HPF (0 - 0) H Urine Squamous Epithelial Cells None /LPF (NONE/OCC) Urine Amorphous Sediment Many /LPF (NONE) H Urine Bacteria Few /HPF (NONE) White Blood Count 16.9 K/UL (4.8-10.8) H Red Blood Count 4.71 M/UL (4.70-6.10) Hemoglobin 15.1 G/DL (14.2-18.0) Hematocrit 42.5 % (42.0-52.0) Mean Corpuscular Volume 90 FL (80-99) Mean Corpuscular Hemoglobin 32.0 PG (27.0-31.0) H Mean Corpuscular Hemoglobin Concent 35.5 G/DL (32.0-36.0) Red Cell Distribution Width 12.2 % (11.6-14.8) Platelet Count 189 K/UL (150-450) Mean Platelet Volume 6.4 FL (6.5-10.1) L Neutrophils (%) (Auto) 80.7 % (45.0-75.0) H Lymphocytes (%) (Auto) 5.1 % (20.0-45.0) L Monocytes (%) (Auto) 12.4 % (1.0-10.0) H Eosinophils (%) (Auto) 0.6 % (0.0-3.0) Basophils (%) (Auto) 1.2 % (0.0-2.0) Sodium Level 138 MMOL/L (136-145) Potassium Level 3.6 MMOL/L (3.5-5.1) Chloride Level 103 MMOL/L (98-107) Carbon Dioxide Level 26 MMOL/L (21-32) Anion Gap 9 mmol/L (5-15) Blood Urea Nitrogen 24 mg/dL (7-18) H Creatinine 1.7 MG/DL (0.55-1.30) H Estimat Glomerular Filtration Rate 39.2 mL/min (>60) Glucose Level 107 MG/DL (74-106) H Calcium Level 8.4 MG/DL (8.5-10.1) L Magnesium Level 2.1 MG/DL (1.8-2.4) Total Bilirubin 2.3 MG/DL (0.2-1.0) H Direct Bilirubin 0.6 MG/DL (0.0-0.3) H Aspartate Amino Transf (AST/SGOT) 29 U/L (15-37) Alanine Aminotransferase (ALT/SGPT) 23 U/L (12-78) Alkaline Phosphatase 75 U/L (46-116) Troponin I 0.882 ng/mL (0.000-0.056) Total Protein 7.0 G/DL (6.4-8.2) Albumin 2.8 G/DL (3.4-5.0) L Globulin 4.2 g/dL Albumin/Globulin Ratio 0.7 (1.0-2.7) L Random Vancomycin Level 6.4 ug/mL Plan Problems: (1) Hydronephrosis (2) Elevated troponin (3) Ureteral stone (4) Acute renal failure (5) Abnormal LFTs Assessment & Plan: 79M s/p Right RIRS ESWL Stone removal right stent placement post op noted on CMP to have t bili of 1.8 no pain no n/v/f/c comfortable tolerating diet using incentive spirometry d bili noted and not elevated. <50% difference unlikely biliary tree and likely blood labs ordered exam benign no acute surgical intervention planned okay for diet ambulate as tolerated will follow with recs thank you Evaluation of the soft tissue and vasculature is limited on this noncontrast exam. The lung bases demonstrate no consolidation or pleural effusions. 12 mm hepatic dome cyst (coronal 40). Additional subcentimeter hypoattenuating liver lesions are identified, too small to characterize. The spleen, pancreas and adrenal gland are unremarkable, within the confines of this noncontrast exam. No gallbladder wall thickening or pericholecystic free fluid. A 9 mm stone is identified within the distal right ureter (3: 117, coe images). There is more proximal moderate hydroureteronephrosis with periureteral inflammatory changes consistent with obstructive urolithiasis. Additional nonobstructive bilateral renal calculi are identified, the largest measuring 13 mm within the left kidney. No left hydronephrosis. 36 mm partially exophytic left lower pole renal cyst. The appendix is unremarkable. The bowel demonstrate normal caliber without evidence of obstruction. No mural bowel wall thickening. The prostate gland is enlarged measuring 18 mm in the transverse dimension. The urinary bladder is decompressed limiting evaluation of the lumen. Aorta is normal caliber. Atherosclerotic vascular calcifications are identified. No adenopathy or extraluminal air. No organized fluid collection or ascites. Penile pump reservoir identified within the right lower quadrant. Multilevel degenerative changes are identified within the thoracic and lumbar spine including vacuum disc phenomenon. Small fat containing periumbilical hernia. IMPRESSION: 1. Obstructing 9 mm stone within the distal right ureter, with more proximal moderate hydroureteronephrosis. Additional bilateral calculi are identified, nonobstructive. 2. Incidental note is made of an enlarged prostate gland. Dilip Alejandra Mar 17, 2020 12:44
--- NOTE | 2020-03-17 12:49 | Surgery Progress Note ---
Surgery Progress Note Subjective Symptoms: improved Additional Comments feels much better today no n/v/f/c states better since whitehead out wbc trending down eating regular diet had BM t bili elevated but not obstructive Objective Last 24 Hour Vital Signs Date Time Temp Pulse Resp B/P (MAP) Pulse Ox O2 Delivery O2 Flow Rate FiO2 03/17/20 12:00 98.2 96 20 153/97 (115) 96 03/17/20 12:00 96 03/17/20 09:23 110 142/77 03/17/20 09:00 Room Air 03/17/20 08:00 116 03/17/20 08:00 98.6 110 20 142/77 (98) 96 03/17/20 04:00 99.0 98 20 127/69 (88) 96 03/17/20 04:00 93 03/17/20 00:00 98.6 100 19 119/72 (88) 96 03/17/20 00:00 100 03/16/20 21:00 Room Air 03/16/20 20:29 100.0 03/16/20 20:00 111 03/16/20 20:00 100.0 107 20 112/74 (87) 96 03/16/20 17:28 132 125/74 03/16/20 16:00 79 03/16/20 16:00 98.6 79 19 120/69 (86) 98 I&O Intake and Output 03/16/20 03/17/20 19:00 07:00 Intake Total 1420 ml Output Total 450 ml 150 ml Balance 970 ml -150 ml Intake Oral 420 ml Other 1000 ml Output Urine Total 450 ml 150 ml # Voids 1 Dressing: other Wound: other Cardiovascular: RSR Respiratory: decreased breath sounds Abdomen: soft, distended, non-tender, present bowel sounds Extremities: no edema, no tenderness, no cyanosis Laboratory Tests Test 03/16/20 17:45 03/17/20 05:40 Urine Color Brown Urine Appearance Very cloudy Urine pH 5 (4.5-8.0) Urine Specific [place] 1.020 (1.005-1.035) Urine Protein 3+ (NEGATIVE) H Urine Glucose (UA) Negative (NEGATIVE) Urine Ketones Negative (NEGATIVE) Urine Blood 5+ (NEGATIVE) H Urine Nitrite Positive (NEGATIVE) H Urine Bilirubin 2+ (NEGATIVE) H Urine Ictotest Negative (NEGATIVE) Urine Urobilinogen 4 MG/DL (0.0-1.0) H Urine Leukocyte Esterase 1+ (NEGATIVE) H Urine RBC Tntc /HPF (0 - 0) H Urine WBC 10-15 /HPF (0 - 0) H Urine Squamous Epithelial Cells None /LPF (NONE/OCC) Urine Amorphous Sediment Many /LPF (NONE) H Urine Bacteria Few /HPF (NONE) White Blood Count 16.9 K/UL (4.8-10.8) H Red Blood Count 4.71 M/UL (4.70-6.10) Hemoglobin 15.1 G/DL (14.2-18.0) Hematocrit 42.5 % (42.0-52.0) Mean Corpuscular Volume 90 FL (80-99) Mean Corpuscular Hemoglobin 32.0 PG (27.0-31.0) H Mean Corpuscular Hemoglobin Concent 35.5 G/DL (32.0-36.0) Red Cell Distribution Width 12.2 % (11.6-14.8) Platelet Count 189 K/UL (150-450) Mean Platelet Volume 6.4 FL (6.5-10.1) L Neutrophils (%) (Auto) 80.7 % (45.0-75.0) H Lymphocytes (%) (Auto) 5.1 % (20.0-45.0) L Monocytes (%) (Auto) 12.4 % (1.0-10.0) H Eosinophils (%) (Auto) 0.6 % (0.0-3.0) Basophils (%) (Auto) 1.2 % (0.0-2.0) Sodium Level 138 MMOL/L (136-145) Potassium Level 3.6 MMOL/L (3.5-5.1) Chloride Level 103 MMOL/L (98-107) Carbon Dioxide Level 26 MMOL/L (21-32) Anion Gap 9 mmol/L (5-15) Blood Urea Nitrogen 24 mg/dL (7-18) H Creatinine 1.7 MG/DL (0.55-1.30) H Estimat Glomerular Filtration Rate 39.2 mL/min (>60) Glucose Level 107 MG/DL (74-106) H Calcium Level 8.4 MG/DL (8.5-10.1) L Magnesium Level 2.1 MG/DL (1.8-2.4) Total Bilirubin 2.3 MG/DL (0.2-1.0) H Direct Bilirubin 0.6 MG/DL (0.0-0.3) H Aspartate Amino Transf (AST/SGOT) 29 U/L (15-37) Alanine Aminotransferase (ALT/SGPT) 23 U/L (12-78) Alkaline Phosphatase 75 U/L (46-116) Troponin I 0.882 ng/mL (0.000-0.056) Total Protein 7.0 G/DL (6.4-8.2) Albumin 2.8 G/DL (3.4-5.0) L Globulin 4.2 g/dL Albumin/Globulin Ratio 0.7 (1.0-2.7) L Random Vancomycin Level 6.4 ug/mL Plan Problems: (1) Hydronephrosis (2) Elevated troponin (3) Ureteral stone (4) Acute renal failure (5) Abnormal LFTs Assessment & Plan: 79M s/p Right RIRS ESWL Stone removal right stent placement post op noted on CMP to have t bili of 1.8 no pain no n/v/f/c comfortable tolerating diet using incentive spirometry d bili noted and not elevated. <50% difference unlikely biliary tree and likely blood labs ordered exam benign no acute surgical intervention planned okay for diet ambulate as tolerated will follow with recs improved labs noted trend labs thank you Evaluation of the soft tissue and vasculature is limited on this noncontrast exam. The lung bases demonstrate no consolidation or pleural effusions. 12 mm hepatic dome cyst (coronal 40). Additional subcentimeter hypoattenuating liver lesions are identified, too small to characterize. The spleen, pancreas and adrenal gland are unremarkable, within the confines of this noncontrast exam. No gallbladder wall thickening or pericholecystic free fluid. A 9 mm stone is identified within the distal right ureter (3: 117, coe images). There is more proximal moderate hydroureteronephrosis with periureteral inflammatory changes consistent with obstructive urolithiasis. Additional nonobstructive bilateral renal calculi are identified, the largest measuring 13 mm within the left kidney. No left hydronephrosis. 36 mm partially exophytic left lower pole renal cyst. The appendix is unremarkable. The bowel demonstrate normal caliber without evidence of obstruction. No mural bowel wall thickening. The prostate gland is enlarged measuring 18 mm in the transverse dimension. The urinary bladder is decompressed limiting evaluation of the lumen. Aorta is normal caliber. Atherosclerotic vascular calcifications are identified. No adenopathy or extraluminal air. No organized fluid collection or ascites. Penile pump reservoir identified within the right lower quadrant. Multilevel degenerative changes are identified within the thoracic and lumbar spine including vacuum disc phenomenon. Small fat containing periumbilical hernia. IMPRESSION: 1. Obstructing 9 mm stone within the distal right ureter, with more proximal moderate hydroureteronephrosis. Additional bilateral calculi are identified, nonobstructive. 2. Incidental note is made of an enlarged prostate gland. Dilip Alejandra Mar 17, 2020 12:49
[2020-03-17] MEDS ORDERED: Metoprolol Tartrate 5mg/5ml Inj IVP SCH (13:00)
--- NOTE | 2020-03-17 13:25 | NUR ---
NURSE NOTES: Patient troponin is high, Dr. Iyer and Dr Carter aware.
[2020-03-17] MEDS ORDERED: COLACE100 MG ORAL (14:14)
[2020-03-17] MEDS ORDERED: FLOMAX0.4 MG ORAL (14:14)
[2020-03-17] MEDS ORDERED: AUGMENTIN 875-1 EAC1 ORAL (14:14)
[2020-03-17] MEDS ORDERED: HYDROCODON-ACE1 EA15 ORAL (14:14)
[2020-03-17] MEDS ORDERED: LOPRESSOR25 M1 ORAL (14:14)
--- NOTE | 2020-03-17 14:17 | Pulmonology Progress Note ---
Subjective Interval Events: POd #3; heart rate 120-135 Constitutional: Reports: no symptoms HEENT: Repors: no symptoms Respiratory: Reports: no symptoms Cardiovascular: Reports: no symptoms Gastrointestinal/Abdominal: Reports: nausea Genitourinary: Reports: no symptoms Allergies: Coded Allergies: No Known Allergies (Unverified , 03/13/20) Objective Last 24 Hour Vital Signs Date Time Temp Pulse Resp B/P (MAP) Pulse Ox O2 Delivery O2 Flow Rate FiO2 03/17/20 13:18 96 153/97 03/17/20 12:00 98.2 96 20 153/97 (115) 96 03/17/20 12:00 96 03/17/20 09:23 110 142/77 03/17/20 09:00 Room Air 03/17/20 08:00 116 03/17/20 08:00 98.6 110 20 142/77 (98) 96 03/17/20 04:00 99.0 98 20 127/69 (88) 96 03/17/20 04:00 93 03/17/20 00:00 98.6 100 19 119/72 (88) 96 03/17/20 00:00 100 03/16/20 21:00 Room Air 03/16/20 20:29 100.0 03/16/20 20:00 111 03/16/20 20:00 100.0 107 20 112/74 (87) 96 03/16/20 17:28 132 125/74 03/16/20 16:00 79 03/16/20 16:00 98.6 79 19 120/69 (86) 98 Intake and Output 03/16/20 03/17/20 19:00 07:00 Intake Total 1420 ml Output Total 450 ml 150 ml Balance 970 ml -150 ml Intake Oral 420 ml Other 1000 ml Output Urine Total 450 ml 150 ml # Voids 1 General Appearance: no acute distress HEENT: normocephalic Respiratory: chest wall non-tender, lungs clear Cardiovascular: normal peripheral pulses, normal rate Abdomen: normal bowel sounds Extremities: no cyanosis Microbiology Date/Time Source Procedure Growth Status 03/16/20 17:45 Urine,Clean Catch Urine Culture - Preliminary NO GROWTH Resulted 03/16/20 09:30 Indwelling Cath Urine Culture - Preliminary NO GROWTH Resulted Laboratory Tests 03/16/20 17:45: Urine Color Brown, Urine Appearance Very cloudy, Urine pH 5, Urine Specific [place] 1.020, Urine Protein 3+H, Urine Glucose (UA) Negative, Urine Ketones Negative, Urine Blood 5+H, Urine Nitrite PositiveH, Urine Bilirubin 2+H, Urine Ictotest Negative, Urine Urobilinogen 4H, Urine Leukocyte Esterase 1+H, Urine RBC TntcH, Urine WBC 10-15H, Urine Squamous Epithelial Cells None, Urine Amorphous Sediment ManyH, Urine Bacteria Few 03/17/20 05:40: White Blood Count 16.9H, Red Blood Count 4.71, Hemoglobin 15.1, Hematocrit 42.5, Mean Corpuscular Volume 90, Mean Corpuscular Hemoglobin 32.0H, Mean Corpuscular Hemoglobin Concent 35.5, Red Cell Distribution Width 12.2, Platelet Count 189, Mean Platelet Volume 6.4L, Neutrophils (%) (Auto) 80.7H, Lymphocytes (%) (Auto) 5.1L, Monocytes (%) (Auto) 12.4H, Eosinophils (%) (Auto) 0.6, Basophils (%) (Auto) 1.2, Sodium Level 138, Potassium Level 3.6, Chloride Level 103, Carbon Dioxide Level 26, Anion Gap 9, Blood Urea Nitrogen 24H, Creatinine 1.7H, Estimat Glomerular Filtration Rate 39.2, Glucose Level 107H, Calcium Level 8.4L, Mag[place] sium Level 2.1, Total Bilirubin 2.3H, Direct Bilirubin 0.6H, Aspartate Amino Transf (AST/SGOT) 29, Alanine Aminotransferase (ALT/SGPT) 23, Alkaline Phosphatase 75, Troponin I 0.882H, Total Protein 7.0, Albumin 2.8L, Globulin 4.2, Albumin/Globulin Ratio 0.7L, Random Vancomycin Level 6.4 Current Medications Medications (Trade) Dose Ordered Sig/Evelyn Route PRN Reason Start Time Stop Time Status Last Admin Dose Admin Acetaminophen (Tylenol) 650 mg Q6H PRN ORAL Mild Pain (Pain Scale 1-3) 03/14/20 13:15 04/13/20 13:14 03/16/20 19:59 Acetaminophen/ Hydrocodone Bitart ([place] 5/325) 1 tab Q4H PRN ORAL Moderate Pain (Pain Scale 4-6) 03/14/20 13:15 03/21/20 13:14 Artificial Tears (Akwa-Tears) 2 drop Q2H PRN BOTH EYES Dry Eyes 03/15/20 13:30 04/14/20 13:29 03/15/20 14:37 Belladonna Alkaloids/Opium (B & O 16-A) 60 mg Q6H RECTAL 03/15/20 09:00 03/19/20 08:59 03/17/20 09:24 Bisacodyl (Dulcolax) 10 mg Q6H PRN RECTAL Constipation 03/15/20 10:00 06/13/20 09:59 Docusate Sodium (Colace) 100 mg TWICE A DAY ORAL 03/14/20 18:00 04/13/20 17:59 03/17/20 09:22 Famotidine (Pepcid) 40 mg DAILY ORAL 03/15/20 09:00 06/13/20 08:59 03/17/20 09:24 Finasteride (Proscar) 5 mg DAILY ORAL 03/14/20 15:30 06/12/20 15:29 03/17/20 09:22 Hydromorphone HCl (Dilaudid) 0.5 mg Q4H PRN IVP pain 4-6 03/14/20 00:00 03/21/20 00:00 03/14/20 03:24 Hydromorphone HCl (Dilaudid) 1 mg Q3H PRN IVP pain 7-10 03/14/20 13:15 03/21/20 13:14 03/16/20 06:54 Magnesium Hydroxide (Mom) 30 ml Q6H PRN ORAL Constipation 03/15/20 10:00 04/14/20 09:59 03/16/20 09:34 Metoprolol Tartrate (Lopressor) 5 mg ONCE PRN IVP POST HD 03/16/20 15:03 03/17/20 23:59 Metoprolol Tartrate (Lopressor) 100 mg BID ORAL 03/17/20 18:00 06/14/20 17:59 Ondansetron HCl (Zofran) 4 mg Q6H PRN IVP Nausea & Vomiting 03/14/20 13:15 04/13/20 13:14 Phenazopyridine HCl (Pyridium) 200 mg THREE TIMES A DAY ORAL 03/16/20 13:00 03/19/20 12:59 03/17/20 13:18 Piperacillin Sod/ Tazobactam Sod 3.375 gm/Sodium Chloride 110 ml @ 27.5 mls/hr EVERY 8 HOURS IVPB 03/16/20 14:00 03/21/20 13:59 03/17/20 13:18 Tamsulosin HCl (Flomax) 0.8 mg BEDTIME ORAL 03/14/20 21:00 04/13/20 20:59 03/16/20 21:11 Temazepam (RestoriL) 7.5 mg DAILYPRN PRN ORAL Insomnia 03/14/20 13:15 03/21/20 13:14 Vancomycin HCl (Vanco pharmacy to dose) 1 ea DAILY PRN MISC Per rx protocol 03/16/20 09:30 04/15/20 09:29 Assessment/Plan Assessment/Plan IMPRESSION: 1. Urolithiasis. 2. Troponin leak. 3. Chronic atrial fibrillation. 4. Status post WATCHMAN procedure. 5. Chronic beta blockade. 6. POD #3; s/p cystoscopy, stent and stone removal DISCUSSION: WBC decreased to 16 Low grade fever 99 DC home PO Augmentin, metoprolol and Flomax Outpt followup Omar Harvey Omar Syed MD Mar 17, 2020 14:17
--- NOTE | 2020-03-17 14:49 | Cardiology Progress Note ---
Subjective DATE OF SERVICE: Mar 17, 2020 No pain or SOB at rest. Heart rates remain up - but improved post advancing beta giuliana dosing; still suboptimal. Monitor: AFib CXR (03/16) clear Objective Last 24 Hour Vital Signs Date Time Temp Pulse Resp B/P (MAP) Pulse Ox O2 Delivery O2 Flow Rate FiO2 03/17/20 13:18 96 153/97 03/17/20 12:00 98.2 96 20 153/97 (115) 96 03/17/20 12:00 96 03/17/20 09:23 110 142/77 03/17/20 09:00 Room Air 03/17/20 08:00 116 03/17/20 08:00 98.6 110 20 142/77 (98) 96 03/17/20 04:00 99.0 98 20 127/69 (88) 96 03/17/20 04:00 93 03/17/20 00:00 98.6 100 19 119/72 (88) 96 03/17/20 00:00 100 03/16/20 21:00 Room Air 03/16/20 20:29 100.0 03/16/20 20:00 111 03/16/20 20:00 100.0 107 20 112/74 (87) 96 03/16/20 17:28 132 125/74 03/16/20 16:00 79 03/16/20 16:00 98.6 79 19 120/69 (86) 98 ROS: unchanged from eval of 03/14/20 HEENT: normal ENT inspection RHYTHM: Afib CARDIAC: irregularly irregular, rapid rate ABDOMEN: tender - suprapubic EXTREMITIES: No edema Laboratory Tests Test 03/16/20 17:45 03/17/20 05:40 Urine Color Brown Urine Appearance Very cloudy Urine pH 5 (4.5-8.0) Urine Specific [place] 1.020 (1.005-1.035) Urine Protein 3+ (NEGATIVE) H Urine Glucose (UA) Negative (NEGATIVE) Urine Ketones Negative (NEGATIVE) Urine Blood 5+ (NEGATIVE) H Urine Nitrite Positive (NEGATIVE) H Urine Bilirubin 2+ (NEGATIVE) H Urine Ictotest Negative (NEGATIVE) Urine Urobilinogen 4 MG/DL (0.0-1.0) H Urine Leukocyte Esterase 1+ (NEGATIVE) H Urine RBC Tntc /HPF (0 - 0) H Urine WBC 10-15 /HPF (0 - 0) H Urine Squamous Epithelial Cells None /LPF (NONE/OCC) Urine Amorphous Sediment Many /LPF (NONE) H Urine Bacteria Few /HPF (NONE) White Blood Count 16.9 K/UL (4.8-10.8) H Red Blood Count 4.71 M/UL (4.70-6.10) Hemoglobin 15.1 G/DL (14.2-18.0) Hematocrit 42.5 % (42.0-52.0) Mean Corpuscular Volume 90 FL (80-99) Mean Corpuscular Hemoglobin 32.0 PG (27.0-31.0) H Mean Corpuscular Hemoglobin Concent 35.5 G/DL (32.0-36.0) Red Cell Distribution Width 12.2 % (11.6-14.8) Platelet Count 189 K/UL (150-450) Mean Platelet Volume 6.4 FL (6.5-10.1) L Neutrophils (%) (Auto) 80.7 % (45.0-75.0) H Lymphocytes (%) (Auto) 5.1 % (20.0-45.0) L Monocytes (%) (Auto) 12.4 % (1.0-10.0) H Eosinophils (%) (Auto) 0.6 % (0.0-3.0) Basophils (%) (Auto) 1.2 % (0.0-2.0) Sodium Level 138 MMOL/L (136-145) Potassium Level 3.6 MMOL/L (3.5-5.1) Chloride Level 103 MMOL/L (98-107) Carbon Dioxide Level 26 MMOL/L (21-32) Anion Gap 9 mmol/L (5-15) Blood Urea Nitrogen 24 mg/dL (7-18) H Creatinine 1.7 MG/DL (0.55-1.30) H Estimat Glomerular Filtration Rate 39.2 mL/min (>60) Glucose Level 107 MG/DL (74-106) H Calcium Level 8.4 MG/DL (8.5-10.1) L Magnesium Level 2.1 MG/DL (1.8-2.4) Total Bilirubin 2.3 MG/DL (0.2-1.0) H Direct Bilirubin 0.6 MG/DL (0.0-0.3) H Aspartate Amino Transf (AST/SGOT) 29 U/L (15-37) Alanine Aminotransferase (ALT/SGPT) 23 U/L (12-78) Alkaline Phosphatase 75 U/L (46-116) Troponin I 0.882 ng/mL (0.000-0.056) Total Protein 7.0 G/DL (6.4-8.2) Albumin 2.8 G/DL (3.4-5.0) L Globulin 4.2 g/dL Albumin/Globulin Ratio 0.7 (1.0-2.7) L Random Vancomycin Level 6.4 ug/mL Microbiology Date/Time Source Procedure Growth Status 03/16/20 17:45 Urine,Clean Catch Urine Culture - Preliminary NO GROWTH Resulted 03/16/20 09:30 Indwelling Cath Urine Culture - Preliminary NO GROWTH Resulted Assessment/Plan Assessment/Plan Chronic AFib, now with increased rates 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 Acute myocardial ischemia and probable NSTEMI S/P stone extraction Leukocytosis Ac renal insuff improved Advance beta giuliana Recheck troponin Abx Repeat CBC and renal fxn Consider stress test once acute illness resolves; patient made aware of possible small "heart attack" and need for further work-up. He wants to pursue as outpatient. Varun Carter MD Mar 17, 2020 14:49
--- NOTE | 2020-03-17 15:40 | NUR ---
NURSE NOTES: Discharge instruction given, Patient verbalized understanding, monitoring manager and IV removed, No distress or bleeding noted. All paper work signed by patient. Belonging check done. Patient is in stable condition. Escorted downstairs and patient left via uber.
[2020-03-17 16:00] VITALS: BP 127/77
--- NOTE | 2020-03-19 08:34 | Discharge Summary ---
Discharge Summary Discharge Summary _ DATE OF ADMISSION: 03/13/2020 DATE OF DISCHARGE: 03/17/2020 DISCHARGED BY: Dr. Iyer REASON FOR ADMISSION: 79 years old male with past medical history of chronic atrial fibrillation, status post failed watchman procedure 2 years ago, presented to the hospital with a flank pain. He denied chest pain or shortness of breath. Laboratory work-up was significant for leukocytosis WBC 14.4 , stable hemoglobin and hematocrit. BUN 25, creatinine 2.0. Troponin elevated 0.093. EKG showed atrial fibrillation with rapid ventricular response. Urinalysis revealed +2 protein ,+1 leukocyte esterase, but no pyuria and no bacteria. CT scan of the abdomen and pelvis revealed obstructing 9 mm stone within the distal right ureter with more proximal moderate hydroureteronephrosis. Additional bilateral calculi identified, nonobstructive. Enlarged prostate gland noted. Rapid COVID-19 on admission was negative. In emergency department patient pancultured, started on empiric antibiotic ,received 2 L of fluids . Analgesic provided. Patient admitted to monitored floor for further management. CONSULTANTS: jingle writer Dr Raul BARRIOS specialist Dr. Wilson surgery Dr. Alejandra neurologist Dr. Chou [facility] COURSE: Patient was admitted and continued with IV fluids and broad spectrum antibiotic. Patient was followed up with troponin. Echocardiogram revealed preserved ejection fraction of 60% , no evidence of the left ventricular hypertrophy. No evidence of wall motion abnormality. Right ventricular systolic pressure of 40 consistent with a mild pulmonary hypertension. Patient was in atrial fibrillation with rapid ventricular response. Beta giuliana dose was advanced. Anticoagulation was hold given impending surgery. Beta-giuliana was advanced. Referral Manager cleared patient for procedure. Patient subsequently undergone cystoscopy with laser lithotripsy and semirigid ureteroscopy of the distal right ureteral stone. Flexible ureteroscopy and nephroscopy with combined laser and extracorporeal shockwave lithotripsy of the right renal stones with stone removal, retrograde pyelogram, double-J stent placement Patient tolerated procedure well. Postoperatively pain management was addressed. Patient started on Flomax. Blood and urine culture were negative initially on admission and repeated on negative as well. Leukocytosis trending down, fever resolved. Patient was switched to oral antibiotic upon discharge to complete the course Referral Manager recommended stress test once acute illness resolved. Patient was made aware of possible small heart attack and need for further work- up. Patient wanted to pursue further work-up as outpatient. Venous duplex bilateral lower extremity revealed no evidence of acute DVT. Renal parameters and electrolytes were closely monitored ; electrolytes corrected as needed. Creatinine from 2.0 down to 1.7. Patient clinically stabilized and was ready for discharge home. FINAL DIAGNOSES: Obstructing distal right ureteral stone Multiply right renal stones Acute kidney injury Severe hydronephrosis Status post cystoscopy, laser lithotripsy, semirigid ureteroscopy of the distal right ureteral stone. Flexible ureteroscopy and nephroscopy with combined laser and extracorporeal shockwave lithotripsy of the right renal stones with stone removal, retrograde pyelogram, double-J stent placement Leukocytosis-improving Myocardial ischemia, probable NSTEMI Chronic atrial fibrillation History of Watchman procedure to atrium DISCHARGE MEDICATIONS: See Medication Reconciliation list. DISCHARGE INSTRUCTIONS: Patient was discharged home. Follow-up with a primary care provider in 1 week. I have been assigned to dictate discharge summary for this account. I was not involved in the patient's management. Anita Bob NP Mar 19, 2020 08:34
--- NOTE | 2020-03-19 08:50 | Cardiology Report ---
APPROVED REPORT EXAM: Two-dimensional and M-mode echocardiogram with Doppler and color Doppler. INDICATION Abnormal cardiac rhythm M-Mode DIMENSIONS IVSd1.1 (0.7-1.1cm)Left Atrium (MM)5.5 (1.6-4.0cm) LVDd4.2 (3.5-5.6cm)Aortic Root2.7 (2.0-3.7cm) PWd1.0 (0.7-1.1cm)Aortic Cusp Exc.1.6 (1.5-2.0cm) IVSs1.4 cm LVDs3.6 (2.5-4.0cm) PWs1.2 cm <Conclusion> Technically difficult study due to poor acoustic windows. Study quality precludes accurate assessment of regional wall motion. Normal left ventricular chamber size, systolic function and wall motion. Left ventricular ejection fraction estimated to be 60 %. No evidence of left ventricular hypertrophy. No evidence of pericardial effusion. Mild left atrial enlargement. Right cardiac chamber sizes are within normal limits. Moderate focal aortic valve sclerosis with adequate cusp excursion. Mildly thickened mitral valve leaflets with normal excursion. Mild mitral annulus and aortic root calcification. Pulmonic valve not well visualized. Normal tricuspid valve structure. IVC is normal in size with physiological collapse. A color flow and spectral Doppler study was performed and revealed: No aortic regurgitation. Trace mitral regurgitation. Left ventricular diastolic function could not be determined due to A-Fib. Mild tricuspid regurgitation. Tricuspid systolic velocities suggests peak right ventricular systolic pressure of 40 mmHg, consistent with mild pulmonary hypertension. Trace pulmonic regurgitation present.
== END 2020-03-17 15:35 | disposition home or self-care (01) | DRG 659 ==
LOC: EMR 20:55 → 3E 21:33 → EDBEDREQ 21:50 → 2W 22:36 → 2E 03-15 16:28
PROC: 0TC08ZZ Extirpation of Matter from Right Kidney, Via Natural or Artificial Opening Endoscopic (ICD-10-PCS; principal; 2020-03-14 11:45)
PROC: 0TC68ZZ Extirpation of Matter from Right Ureter, Via Natural or Artificial Opening Endoscopic (ICD-10-PCS; principal; 2020-03-14 11:45)
PROC: 0T768DZ Dilation of Right Ureter with Intraluminal Device, Via Natural or Artificial Opening Endoscopic (ICD-10-PCS; principal; 2020-03-14 11:45)
DX: N13.2 Hydronephrosis with renal and ureteral calculous obstruction (principal); I21.4 Non-ST elevation (NSTEMI) myocardial infarction; I50.32 Chronic diastolic (congestive) heart failure; I48.20 Chronic atrial fibrillation, unspecified; N17.9 Acute kidney failure, unspecified
CPT/HCPCS: 36415; 71045; 74176; 80048; 80053; 80202; 81001; 81003; 82248; 82550; 82553; 83605; 83735; 83880; 84443; 84484; 85007; 85025; 85610; 85730; 86850; 86900; 86901; 87040; 87086; 93005; 93306; 93970; 94003; 94150; 96361; 96365; 99285; J2250; J2370; J2405; J2765; J7030; J8499; U0002